=== PATIENT | male | born 1965 | race Caucasian/White ===

== ENCOUNTER 2019-12-26 17:34 | Emergency (ER) | payer BC ==
[~2019-12-26] VITALS: Ht 182.9 cm; Wt 120.2 kg
[~2019-12-26 17:34] MED LIST: ALEVE; APRISO0.375 GM PO; BENAZEPRIL HCL20 MG PO; GRALISE600 MG; HUMIRA40 MG/0.1 INJ; OMEPRAZOLE40 MG; OMEPRAZOLE40 MG PO; PENTASA250 MG PO; PROBIOTIC & AC1 EACH; TRILIPIX45 MG PO
[2019-12-26] MEDS ORDERED: SODIUM CHLORIDE 0.9% 1000ML 1,000 ML IV STA (18:08)
[2019-12-26] MEDS ORDERED: KETOROLAC TROMETHAMINE 30 MG/ML VIAL IV ONE (18:08)
[2019-12-26 18:12] LABS: BASOPHILS # (AUTO) 0.1 (0.0-0.1); BASOPHILS % 1.1 % (0.0-1.0); EOSINOPHILS # (AUTO) 0.3 (0.0-0.4); EOSINOPHILS % 3.5 % (0.0-6.0); HEMOGLOBIN 13.9 g/dL (14.0-18.0); LYMPHOCYTES # (AUTO) 2.9 (1.0-3.2); MEAN CORPUSCULAR HEMOGLOBIN 29.6 pg (28-32); MEAN CORPUSCULAR HGB CONC 31.6 g/dL (31-35); MEAN CORPUSCULAR VOLUME 93.6 fL (81-99); MONOCYTES # (AUTO) 0.8 (0.2-0.8); MONOCYTES % 10.2 % (4.4-11.3); NEUTROPHILS # (AUTO) 3.4 (2.1-6.9); NEUTROPHILS % 45.5 % (38.7-80.0); PLATELET COUNT 292 x10e3/uL (140-360); RED CELL DISTRIBUTION WIDTH 14.2 % (11.7-14.4)
[2019-12-26 18:30] LABS: ALBUMIN 3.9 g/dL (3.5-5.0); ALBUMIN/GLOBULIN RATIO 1.2 (0.8-2.0); ANION GAP 11.8 mmol/L (8-16); CALCIUM 10.9 mg/dL (8.4-10.2); CREATININE, SERUM 1.27 mg/dL (0.72-1.25); POTASSIUM 3.8 mmol/L (3.5-5.1)
[2019-12-26] MEDS ORDERED: KETOROLAC TROMETHAMINE 30 MG/ML VIAL ONE (18:33)
[2019-12-26 18:37] LABS: CREATINE KINASE MB 0.9 ng/mL (0-5.0)
--- NOTE | 2019-12-26 18:42 | Diagnostic Imaging Report ---
Examination: Single AP view of the chest. COMPARISON: None. INDICATION: Chest pain DISCUSSION: Lines/tubes: None. Lungs: The lungs are well inflated and clear. No pneumonia or pulmonary edema. Pleura: No pleural effusion or pneumothorax. Heart and mediastinum: The heart and the mediastinum are unremarkable. Bones and soft tissues: No acute bony abnormalities. IMPRESSION: 1. No acute cardiopulmonary abnormalities. Signed by: Dr. Ramos Jarquin M.D. on 12/26/2019 6:39 PM
--- NOTE | 2019-12-26 18:45 | NUR ---
REC'D REPORT FROM OFF GOING NS. AWAITING LAB RESULTS FROM HOSP.
[2019-12-26] MEDS ORDERED: IOPAMIDOL 370 MG/ML 200 ML INFUS..BTL INJ ONE (18:48)
[2019-12-26] MEDS ORDERED: SODIUM CHLORIDE 0.9% 50ML 50 ML ONE (18:48)
--- OUTSIDE RECORDS SUMMARY | 2019-12-26 19:16 | XMS REPORT | Continuity of Care Document ---
Author Author [facility] t Organization [facility] t Address [address] [place] [address] Phone Unavailable Care Team Providers Care Nursing Administrator Name Role Phone Kasey FIGUEROA, Baljeet Portillo PCP Yobani JACK Attphys Unavailable Maia Vega DO Attphys Catalina FIGUEROA, Willard Attphys Elvie Swann MD Attphys Juan Francisco FIGUEROA, Nickie Jimenez Attphys Eliezer Murphy CRNA Attphys TREVOR LOWERY Attphys Unavailable WILLARD ARNOLD Admphys Unavailable Problems Condition Name Condition Details Condition Category Status Onset Date Resolution Date Last Treatment Date Treating Clinician Comments Source Pneumonia due to COVID-19 virus Pneumonia due to COVID-19 virus Dis ease Active 2019-11-29 00:00:00 Quang Burnette Cervical spondylosis Cervical spondylosis Disease Active 00:00:00 Quang Burnette Allergies, Adverse Reactions, Alerts This patient has no known allergies or adverse reactions. Family History Family Member Diagnosis Comments Start Date Stop Date Source Natural father HIV [facility] Natural mother COPD [facility] Natural mother Cancer [facility] Natural mother Heart disease Quang Burnette Social History Social Habit Start Date Stop Date Quantity Comments Source History of tobacco use Cigarette Smoker Quang Burnette Sex Assigned At Dotty Burnette Exposure to SARS-CoV-2 (event) Yes Quang Burnette Cigarettes smoked current (pack per day) - Reported 00:00:00 2019-03-03 00:00:00 Quang Burnette Cigarette pack-years 2019-03-03 00:00:00 2019-03-03 00:00:00 Quang Burnette Alcohol intake 2019-03-03 00:00:00 2019-03-03 00:00:00 Current drinker of alcohol (finding) Quang Burnette Alcohol Comment 2019-03-02 00:00:00 2019-03-02 00:00:00 social Quang Burnette Tobacco Comment 2019-02-18 00:00:00 2019-02-18 00:00:00 quit 3 years ago Quang Burnette Smoking Status Start Date Stop Date Source Former smoker 2019-03-03 00:00:00 2019-03-03 00:00:00 Quang Burnette Medications Ordered Medication Name Filled Medication Name Start Date Stop Da te Current Medication? Ordering Clinician Indication Dosage Frequency Signature (SIG) Comments Components Source ascorbic acid, vitamin C, (VITAMIN C) 500 MG tablet 2019-12-02 00:00:00 2020-01-01 23:59:00 Yes 1000mg QD Take 2 tablets (1,000 mg total) by mouth daily for 30 days. Quang Burnette zinc sulfate (ZINCATE) 220 (50) mg capsule 12-01 00:00:00 2020-01-01 23:59:00 Yes 220mg QD Take 1 capsule (220 mg total) by mouth daily for 30 days. Quang Burnette dexamethasone (DECADRON) 1 MG tablet 2019-12-02 00:00: 00 2019-12-10 23:59:00 No 1mg QD Take 1 tablet ( 1 mg total) by mouth daily with breakfast for 8 days. Quang Burnette cefpodoxime (VANTIN) 200 MG tablet 2019-12-02 00:00:00 23:59:00 No 200mg Q.5D Take 1 tablet (2 00 mg total) by mouth 2 (two) times a day for 7 days. Quang Burnette ascorbic acid, vitamin C, (VITAMIN C) 500 MG tablet 2019-12-02 00:00:00 2019-12-01 00:00:00 No 1000mg QD Take 2 tablets (1,000 mg total) by mouth daily for 30 days. Quang Burnette zinc sulfate (ZINCATE) 220 (50) mg capsule 12-01 00:00:00 2019-12-01 00:00:00 No 220mg QD Take 1 capsule (220 mg total) by mouth daily for 30 days. Quang Burnette cefpodoxime (VANTIN) 200 MG tablet 2019-12-02 00:00:00 202 00:00:00 No 200mg Q.5D Take 1 tablet (2 00 mg total) by mouth 2 (two) times a day for 7 days. Quang Burnette adalimumab (HUMIRA) 40 mg/0.8 mL injection 2019-12-01 14:53:13 Yes .8mL 0.8 mL. Quang brito omeprazole (PriLOSEC) 40 MG capsule 2019-12-01 14:53:13 Yes 40mg Take 40 mg by mouth. Quang Burnette guaiFENesin (ROBITUSSIN) 100 mg/5 mL syrup 2019-12-01 00:00:00 Yes 200mg Q.[id number] Take 10 mL (200 mg total) by mouth 3 (three) times a day as needed for cough or congestion. Santhosh Burnette albuterol (PROAIR HFA) 90 mcg/actuation inhaler 2019-12-01 00:00:00 2019-12-31 23:59:00 Yes 2{puff} Q.25D Inhale 2 puffs every 4 (four) hours while awake for 30 days. Quang Burnette enoxaparin (LOVENOX) 40 mg/0.4 mL syringe 11-30 00:00:00 2019-12-15 23:59:00 No 40mg Q24H Inject 0.4 mL (40 mg total) under the skin daily for 14 days. Quang Burnette albuterol (PROAIR HFA) 90 mcg/actuation inhaler 2019-12-01 00:00:00 2019-12-01 00:00:00 No 2{puff} Q.25D Inhale 2 puffs every 4 (four) hours while awake for 30 days. Quang Burnette enoxaparin (LOVENOX) 40 mg/0.4 mL syringe 11-30 00:00:00 2019-12-01 00:00:00 No 40mg Q24H Inject 0.4 mL (40 mg total) under the skin daily for 14 days. Quang Burnette guaiFENesin (ROBITUSSIN) 100 mg/5 mL syrup 11-30 00:00:00 2019-12-01 00:00:00 No 200mg Q.[id number] Ta ke 10 mL (200 mg total) by mouth 3 (three) times a day as needed for cough or congestion. Quang Burnette docusate sodium (COLACE) 100 MG capsule 00:00:00 2019-04-02 23:59:00 No 100mg Q.5D Take 1 capsule (100 mg total) by mouth 2 (two) times a day for 30 days. Quang Burnette tiZANidine (ZANAFLEX) 4 MG tablet 2019-03-03 00:00:00 2018 23:59:00 No 4mg Q8H Take 1 tablet (4 mg total) by mouth every 8 (eight) hours as needed for muscle spasms for up to 7 days. Nichole Burnette cholecalciferol, vitamin D3, 50,000 unit capsule 2019-02-07 00:00:00 Yes TAKE ONE TABLET WEEKLY ORALLY Quang Burnette meloxicam (MOBIC) 15 mg tablet 2019-02-04 00:00:00 Yes 15mg QD Take 15 mg by mouth daily. Quang Burnette PENTASA 500 mg CR capsule 2019-01-29 00:00:00 Yes 1000mg Q.5D Take 1,000 mg by mouth 2 (two) times a day. Quang Burnette choline fenofibrate (TRILIPIX) 135 mg capsule 20 10-02-07 00:00:00 2019-11-29 00:00:00 No 135mg QD Take 135 mg by mouth daily. Quang Burnette clopidogrel (PLAVIX) 75 mg tablet 2017-09-16 00:00:00 Yes TAKE 1 TABLET BY MOUTH EVERY DAY Quang tobin benazepril (LOTENSIN) 10 MG tablet 2017-09-16 00:00:00 Yes TAKE 1/2 TABLET BY MOUTH EVERY DAY Quang tobin Vital Signs Vital Name Observation Time Observation Value Comments Source Systolic blood pressure 2019-12-01 11:22:31 116 mm[Hg] Quang Burnette Diastolic blood pressure 2019-12-01 11:22:31 78 mm[Hg] Quang Burnette Heart rate 2019-12-01 11:22:31 65 /min Quang Burnette Body temperature 2019-12-01 11:22:31 36.56 Charlene Nichole Burnette Respiratory rate 2019-12-01 11:22:31 25 /min Nichole Burnette Oxygen saturation in Arterial blood by Pulse oximetry 11-30 11:22:31 95 /min Quang Burnette Body height 2019-11-29 14:41:00 182.9 cm Quang Burnette Body weight 2019-11-29 14:41:00 122.471 kg Quang Burnette BMI 2019-11-29 14:41:00 36.62 kg/m2 Quang Burnette Procedures Procedure Date / Time Performed Performing Clinician Sourc e POC GLUCOSE 2019-12-01 12:12:00 Willard Arnold POC GLUCOSE 2019-12-01 05:56:00 Willard Arnold CBC WITH PLATELET AND DIFFERENTIAL 2019-12-01 05:30:00 Bee Figueroa BASIC METABOLIC PANEL 2019-12-01 05:30:00 Bee Figueroa ESTIMATED GFR 2019-12-01 05:30:00 Bee Figueroa MANUAL DIFFERENTIAL 2019-12-01 05:30:00 Bee Figuerao POC GLUCOSE 2019-11-30 19:57:00 Willard Arnold POC GLUCOSE 2019-11-30 16:40:00 Willard Arnold POC GLUCOSE 2019-11-30 15:10:00 Willard Arnold COVID-19 QUALITATIVE PCR 2019-11-30 14:30:00 Alban Richmond POC GLUCOSE 2019-11-30 11:25:00 Willard Arnold TROPONIN 2019-11-30 01:40:00 [facility] CBC WITH PLATELET AND DIFFERENTIAL 2019-11-30 01:40:00 Shiraz Cobb COMPREHENSIVE METABOLIC PANEL 2019-11-30 01:40:00 Byron Cobb ESTIMATED GFR 2019-11-30 01:40:00 Byron [facility] MANUAL DIFFERENTIAL 2019-11-30 01:40:00 Byron Cobb BLOOD CULTURE, AEROBIC & ANAEROBIC 2019-11-29 18:21:00 Gary, Kasi Burnette TROPONIN 2019-11-29 18:21:00 Achuo, Byron [facility] IGG SUBCLASSES 2019-11-29 18:21:00 Gary, Adam Burnette INTERLEUKIN 6 2019-11-29 18:21:00 Gary, Adma Burnette C-REACTIVE PROTEIN 2019-11-29 18:21:00 Gary, Adam Burnette FERRITIN LEVEL 2019-11-29 18:21:00 Gary, Adam Burnette D-DIMER 2019-11-29 18:21:00 Gary, Adam Burnette LDH 2019-11-29 18:21:00 Gary, Adam Burnette TRIGLYCERIDES 2019-11-29 18:21:00 Gary, Adam Burnette FIBRINOGEN 2019-11-29 18:21:00 Gary, Adam Burnette CREATINE KINASE, TOTAL (CPK) 2019-11-29 18:21:00 Gary, Adam Burnette ABO/RH 2019-11-29 18:21:00 Gary, Adam Burnette BLOOD CULTURE, AEROBIC & ANAEROBIC 2019-11-29 18:06:00 Gary, Kasi Burnette IA CRITICAL CARE, E/M 30-74 MINUTES 2019-11-29 15:57:46 Gary, Jaclyn Burnette CBC WITH PLATELET AND DIFFERENTIAL 2019-11-29 15:34:00 Gary, Kasi Burnette BASIC METABOLIC PANEL 2019-11-29 15:34:00 Gary, Adam Burnette TROPONIN 2019-11-29 15:34:00 Achuo, [facility] B NATRIURETIC PEPTIDE 2019-11-29 15:34:00 Gary, Adam Burnette ESTIMATED GFR 2019-11-29 15:34:00 Gary, Adam Burnette CREATINE KINASE, TOTAL (CPK) 2019-11-29 15:34:00 Gary, Adam martelld Quang Burnette MANUAL DIFFERENTIAL 2019-11-29 15:34:00 GaryAdam Kizzyjessy lundberg Vasile POC GLUCOSE 2019-11-29 15:24:00 Adam Vega XR CHEST 1 VW PORTABLE 2019-11-29 15:17:09 GaryJaclynAdamcarlos a Burnette TROPONIN 2019-03-03 17:50:00 Hima Evans HC COMPLETE BLD COUNT W/AUTO DIFF 2019-03-03 15:36:00 Hima Evans COMPREHENSIVE METABOLIC PANEL 2019-03-03 15:36:00 Jonny Evans ESTIMATED GFR 2019-03-03 15:36:00 Hima Evans odist TROPONIN 2019-03-03 15:36:00 Hima Evans ECG 12-LEAD 2019-03-03 13:57:13 Alli Swann XR CERVICAL SPINE 2 OR 3 VW 2019-03-02 19:30:05 Jonathan Swann ARTERIAL LINE 2019-03-02 15:18:42 Barbara Chicas ethodist OR FL < 1 HOUR 2019-03-02 14:10:00 Alli Swann XR CERVICAL SPINE 2 OR 3 VW 2019-03-02 14:10:00 Jonathan Swann IA AN ELECTIVE ENDOTRACHEAL AIRWAY 2019-03-02 11:29:28 Rosario Ngo SURGICAL PATHOLOGY REQUEST 2019-03-02 11:29:00 Alli Swann DISCECTOMY, CERVICAL, WITH FUSION, ANTERIOR APPROACH 2019-02 09:41:00 Alli Swann TYPE AND SCREEN 2019-02-28 10:05:00 Alli Swann XR CHEST 2 VW 2019-02-18 13:18:00 Alli Swann ECG PRE/POST OP 2019-02-18 12:30:45 Alli Swann CBC HEMOGRAM 2019-02-18 12:30:00 Alli Swann COMPREHENSIVE METABOLIC PANEL 2019-02-18 12:30:00 Mohit Swann PROTHROMBIN TIME WITH INR 2019-02-18 12:30:00 Alli Swann PARTIAL THROMBOPLASTIN TIME (PTT) 2019-02-18 12:30:00 Alli Swann ESTIMATED GFR 2019-02-18 12:30:00 Alli Swann Plan of Care Planned Activity Planned Date Details Comments Source Future Scheduled Test 2019-12-24 00:00:00 INFLUENZA VACCINE [code = INFLUENZA VACCINE] Quang Burnette Future Scheduled Test 2014-02-10 00:00:00 COLONOSCOPY SCREEN ING [code = COLONOSCOPY SCREENING] Quang Burnette Future Scheduled Test 2014-02-10 00:00:00 SHINGLES VACCINES (#1) [code = SHINGLES VACCINES (#1)] Quang Burnette Encounters Start Date/Time End Date/Time Encounter Type Admission Type [facility] Care Department Encounter ID Source 2019-11-29 00:00:00 2019-12-01 00:00:00 [id number] Quang Burnette Results Test Description Test Time Test Comments Results Result Comments Source CXR 1 VEW - HOPD 2019-12-26 18:38:00 [place] [address] Patient Name: LYNETTE CUNNINGHAM MR #: [id number] : 1965 Age/Sex: 54/M Req #: [id number] Adm Physician: Ordered by: ISIDRA JACK Report #: [id number] [facility] Room/Bed: Procedure: [id number] HOPD/CXR 1 VEW - HOPD Exam Date: 12/26/19 Exam Time: 1825 REPORT STATUS: Signed Examination: Single AP view of the chest. COMPARISON: None. INDICATION: Chest pain DISCUSSION: Lines/tubes: None. Lungs: The lungs are well inflated and clear. No pneumonia or pulmonary edema. Pleura: No pleural effusion or pneumothorax. Heart and mediastinum: The heart and the mediastinum are unremarkable. Bones and soft tissues: No acute bony abnormalities. IMPRESSION: 1. No acute cardiopulmonary abnormalities. Signed by: Dr. Kary Blackburn M.D. on 12/26/2019 6:39 PM Dictated By: KARY BLACKBURN MD 38 Transcribed By: BRIGIDO on 12/26/191838 COPY TO: ISIDRA JACK Blood culture, aerobic & anaerobic 2019-12-05 03:03:04 Test Item Blood culture isolate (test code = 600-7) No growth after 5 days of incubation. Specimen InformationSpecimen Source: BloodSpecimen Site: Hand, right [facility] [id number] 21:22:29* Test Item Value Reference Range Interpretation Comments Immunoglobulin G subclass 1 (test code = 2466-1) 510 mg/dL 240-1 118 REFERENCE INTERVAL: Immunoglobulin G Subclass 1Access complete set of age- and/or gender- specific reference intervals for this test in the [facility] Test Directory ([facility]). Immunoglobulin G subclass 2 (test code = 2467-9) 314 mg/dL 124-5 49 REFERENCE INTERVAL: Immunoglobulin G Subclass 2Access complete set of age- and/or gender- specific reference intervals for this test in the [facility] Test Directory ([facility]). Immunoglobulin G subclass 3 (test code = 2468-7) 50 mg/dL 21-13 4 REFERENCE INTERVAL: Immunoglobulin G Subclass 3Access complete set of age- and/or gender- specific reference intervals for this test in the [facility] Test Directory ([employer]). Immunoglobulin G subclass 4 (test code = 2469-5) 8 mg/dL 1-123 The total IgG (mg/dL) can be derived by the sum of the subclasses IgG1, IgG2, IgG3 and IgG4 values. However, a confirmatory and more precise total IgG is available by the nephelometric method of total IgG (Test # [id number]).REFERENCE INTERVAL: Immunoglobulin G Subclass 4Access complete set of age- and/or gender-specific reference intervals for this test in the [facility] Test Directory ([facility]).Performed By: [facility] [place] [address] [id number] Director: Noel Mason MD, MS Quang BurnettePO [id number] 12:13:01* Test Item Value Reference Range Interpretation Comments POC glucose (test code = 76793-8) 152 mg/dL 65-99 H Manager Infrastructure Name: Cassidy Clement ID: [id number] Lab Interpretation (test code = 89767-0) Abnormal Quang MethodmahadC with platelet and [id number] 07:03:23* Test Item Value Reference Range Interpretation Comments WBC (test code = 23861-1) 8.90 4.50- 11.00 k/uL RBC (test code = 61405-5) 4.26 m/uL 4.4-6 L HGB (test code = 718-7) 12.7 g/dL 14-18 L HCT (test code = 4544-3) 40.4 % 41-51 L MCV (test code = 787-2) 94.8 fL 82-100 MCH (test code = 785-6) 29.8 pg 27-34 MCHC (test code = 786-4) 31.4 g/dL 31-37 RDW - SD (test code = 22732-0) 48.7 fL 37-55 MPV (test code = 33002-0) 10.2 fL 8.8-13.2 Platelet count (test code = 11654-2) 414 150- 400 k/uL H Nucleated RBC (test code = 81471-9) 0.00 /100 WBC Neutrophils (test code = 85715-3) 59.0 % 39-69 Lymphocytes (test code = 97825-7) 23.0 % 25-45 L Monocytes (test code = 74061-2) 12.0 % 0-10 H Eosinophils (test code = 84399-5) 2.0 % 0-5 Basophils (test code = 62934-4) 1.0 % 0-1 Lab Interpretation (test code = 85942-5) Abnormal [facility] [id number] 07:03:23* Test Item Value Reference Range Interpretation Comments Manual differential (test code = 40385-6) PERFORMED Neutrophils (test code = 61871-7) 59.0 % 39-69 Lymphocytes (test code = 07512-1) 23.0 % 25-45 L Monocytes (test code = 07360-6) 12.0 % 0-10 H Eosinophils (test code = 26329-7) 2.0 % 0-5 Basophils (test code = 04679-4) 1.0 % 0-1 Metamyelocytes (test code = 740-1) 1 % Promyelocytes (test code = 783-1) 0 % Reactive lymphocytes (test code = 733-6) 2.0 Platelet slide review (test code = 98567-2) Dayana adequate Lab Interpretation (test code = 16413-3) Abnormal [facility] metabolic [id number] 06:51:46* Test Item Value Reference Range Interpretation Comments Sodium (test code = 2951-2) 139 135- 148 mEq/L Potassium (test code = 2823-3) 4.3 3.5- 5.0 mEq/L Chloride (test code = 2075-0) 105 98- 112 mEq/L CO2 (test code = 8-9) 22 24- 31 mEq/L L Anion gap (test code = 24029-4) 12@ANIO 7- 15 mEq/L BUN (test code = 3094-0) 16 mg/dL 6-20 Creatinine (test code = 2160-0) 0.80 mg/dL 0.7-1.2 Glucose (test code = 2345-7) 125 mg/dL 65-99 H Calcium (test code = 57594-1) 9.8 mg/dL 8.3-10.2 Lab Interpretation (test code = 73921-0) Abnormal [facility]ated [id number] 06:51:46* Test Item Value Reference Range Interpretation Comments Estimated GFR (test code = 5488) >=90 mL/min/1.73 m2 Catergory Units InterpretationG1 >=90 Normal or highG2 60-89 Mildly mkcpnfwlxH9c 45-59 Mildly to moderately bhjtdwodiL5d 30-44 Moderately to severely decreasedG4 15-29 Severely decreasedG5 <15 Kidney failureThe eGFR was calculated using the Chronic Kidney Disease Epidemiology Collaboration (CKD-EPI) equation. Interpretation is based on recommendations of the National Kidney Foundation-Kidney Disease Outcomes Quality Initiative (NKF-KDOQI) published in 2014. Quang BurnetteCOVID-19 qualitative [id number] 04:37:22* Test Item Value Reference Range Interpretation Comments Interpretation (test code = 9210926) Negative results do not preclude 2019-nCoV infection and should not be used as the sole basis for treatment or other patient management decisions. Negative results must be combined with clinical observations, patient history, and epidemiological information. COVID-19 qualitative PCR result (test code = 03490-5) Not-Detect ed Not-Detected COVID-19 qualitative PCR (test code = 7070) See link below for P DF Lab Report [facility] XyuvlbyqaLxsuzzqpcxbxb3319-57-51 16:41:49* Test Item Value Reference Range Interpretation Comments Triglycerides (test code = 2571-8) 415 mg/dL <150 H Lab Interpretation (test code = 80211-5) [facility]normal [facility] yglnuwq9981-86-34 10:56:18* Test Item Value Reference Range Interpretation Comments CRP (test code = 1988-5) 4.04 mg/dL 0-0.5 H Lab Interpretation (test code = 25999-8) Abnormal [facility]Ferritin rwzsi6408-10-37 10:07:07* Test Item Value Reference Range Interpretation Comments Ferritin level (test code = 2276-4) 2170 ng/mL 30-400 H Lab Interpretation (test code = 77087-9) Abnormal [facility] MethodistInterleukin 06:29:22* Test Item Value Reference Range Interpretation Comments Interleukin 6 (test code = 52846-2) 9 pg/mL 0-5 H This test was developed and its performance characteristics determined by the Department of Pathology and Genomic Medicine, [facility]. Interleukin 6 is tested by [employer] by one-step immunoenzymatic assay. It has not been cleared or approved by FDA. The laboratory is regulated under CLIA as qualified to perform high-complexity testing. This test is used for clinical purposes. It should not be regarded as investigational or for research. Lab Interpretation (test code = 84135-3) Abnormal Quang BurnetteNsnmxycqgPwohtvzs4563-65-86 02:24:26* Test Item Value Reference Range Interpretation Comments Troponin (test code = 30142-3) <0.006 0-0.04 In patients suspected of having a myocardial infarction, along with all other appropriate clinical measures and actions including ECG and other diagnostics as appropriate, measure Ultra TnI at 0 hrs and at 3 hrs.Myocardial infarction VERY LIKELYThe 0 hr TnI level is > 0.10 ng/mL Toy cardial infarction LIKELYThe 0 hr TnI level is > 0.04 ng/mL and 3 hr level is increased or decreased by at least 0.020 ng/mL Myocardi al infarction VERY UNLIKELYBoth the 0 hr and 3 hr TnI levels <= 0.04 ng/mL(within normal limits) OR 0 hr is > 0.04 ng/mL and 3 hr is increased OR decreased by less than 0.020 ng/mL [facility] [id number] 02:16:28* Test Item Value Reference Range Interpretation Comments Sodium (test code = 2951-2) 135 135- 148 mEq/L Potassium (test code = 2823-3) 4.6 3.5- 5.0 mEq/L Chloride (test code = 2075-0) 102 98- 112 mEq/L CO2 (test code = 8-9) 22 24- 31 mEq/L L Anion gap (test code = 81257-5) 11@ANIO 7- 15 mEq/L BUN (test code = 3094-0) 16 mg/dL 6-20 Creatinine (test code = 2160-0) 0.80 mg/dL 0.7-1.2 Glucose (test code = 2345-7) 184 mg/dL 65-99 H Calcium (test code = 49756-7) 9.6 mg/dL 8.3-10.2 Protein (test code = 2885-2) 7.0 g/dL 6.3-8.3 -[place] 4.6- 7.0 g/dL1 week 4.4-7.6 g/dL7 months-1year 5.1-7.3 g/dL1-2 years 5.6-7.5 g/dL>3 years 6.0-8.0 g/tW58-028 6.3-8.3 g/dL Albumin (test code = 1751-7) 3.2 g/dL 3.5-5 L A/G ratio (test code = 1759-0) 0.8 0.7-3.8 Alkaline phosphatase (test code = 6768-6) 44 U/L 40-129 AST (test code = 1920-8) 27 U/L 10-50 ALT (test code = 1742-6) 60 U/L 5-50 H Total bilirubin (test code = 1975-2) 0.3 mg/dL 0-1.2 Lab Interpretation (test code = 15602-8) Abnormal [facility] MethodistABO and [id number] 18:50:00* Test Item Value Reference Range Interpretation Comments ABO grouping (test code = 883-9) A Rh type (test code = 81164-5) POS [facility] MethodistCreatine kinase, total (CPK)2019-11-29 18:47:37* Test Item Value Reference Range Interpretation Comments Creatine kinase (test code = 2157-6) 32 U/L 39-308 L Lab Interpretation (test code = 65142-9) Abnormal [facility] YmkbwairzZAR0005-08-54 18:47:37* Test Item Value Reference Range Interpretation Comments LDH (test code = 04118-7) 245 U/L 87-225 H Lab Interpretation (test code = 73221-5) Abnormal [facility] FhrbwrnjrL-rcwuh6089-27-07 18:44:53* Test Item Value Reference Range Interpretation Comments D-dimer (test code = 12128-7) 0.49 0.00- 0.40 ug/mL FEU H Units are ug/ml Fibrinogen Equivalent Unit.When combined with low clinical probability, D-dimer results of less than 0.5 ug/ml FEU have a good negative predictive value in excluding PE or DVT. For D-dimer results greater than 0.5 ug/ml FEU further testing is indicated if PE or DVT is suspected clinically.Elevated D-dimer results have been reported in DVT, PE, and DIC cases and may indicate the pre sence of a clot. D-dimer results may be elevated due to old age, , inflammatory diseases, trauma, post-operative states, sepsis, and malignancies. Lab Interpretation (test code = 76995-8) Abnormal [facility] YmqptvuwpNlykgeadcf5962-87-24 18:44:53* Test Item Value Reference Range Interpretation Comments Fibrinogen (test code = 99748-5) 766 mg/dL 200-450 H Lab Interpretation (test code = 77558-8) Abnormal [facility] nat[facility] [id number] 16:11:47* Test Item Value Reference Range Interpretation Comments BNP (test code = 57842-3) 13 pg/mL 0-100 [facility] GaryistCRITICAL [id number] 15:57:46Adam Vega DO 12/02/2019 3:53 AMCritical CarePerformed by: Adam Vega DOAuthorized by: Adam Vega DO Critical care provider statement: Critical care time (minutes): 60 Critical care end time: 12/02/2019 3:52 AM Critical care time was exclusive of: Separately billable procedures and treating other patients Critical care was necessary to treat or prevent imminent or life- threatening deterioration of the following conditions: Respiratory failure Critical care was time spent personally by me on the following activities: Ordering and performing treatments and interventions, ordering and review of laboratory studies, ordering and review of radiographic studies, pulse oximetry, re-evaluation of patient's condition, development of treatment plan with patient or surrogate, evaluation of patient's response to treatment, examination of patient, review of old charts and obtaining history from patient or surrogate Torrey 'yes' if you are taking over critical care for this patient from another provider.: no Quang BurnetteXR Chest 1 Vw [id number] 15:20:53Hm Interface, Radiology Results Incoming - 11/29/2019 3:24 PM CDTEXAMINATION: XR CHEST 1 VW PORTABLECLINICAL HISTORY: SOBCOMPARISON: 02/18/2019FINDINGS:One view of the chest demonstrates normal cardiomediastinal silhouette. Pulmonary vas culature is within normal limits.Patchy bilateral parahilar groundglass opacity and reticulations are seen, suggestive of bilateral multifocal pneumonia. No ple ural effusion is seen.. There is no evidence of pneumothorax. Low lung volume is noted.Regional osseous structures is unremarkable.IMPRESSION:Finding suggestive of bilateral multifocal pneumonia including Covid 19 infection. Recommend clini lilibeth correlation and appropriate laboratory tests for further evaluation..[facility] [place] [id number] MethodistSurgical pathology [id number] 10:16:03* Test Item Value Reference Range Interpretation Comments Case number (test code = 1131264) [id number] Surgical pathology report (test code = 2255) See link below for PDF Lab Report Result status (test code = [id number]) This is Final Report for [id number] 0759-3 Quang BurnetteECG 12 [id number] 14:15:56* Test Item Value Reference Range Interpretation Comments Ventricular rate (test code = 253) 70 Atrial rate (test code = 255) 70 IA interval (test code = 266) 190 QRSD interval (test code = 260) 156 QT interval (test code = 264) 440 QTC interval (test code = 265) 475 P axis 1 (test code = 267) 37 QRS axis 1 (test code = 268) -49 T wave axis (test code = 270) 30 EKG impression (test code = 273) Normal sinus rhythm-R ight bundle branch block- Left anterior fascicular block-^^^ Bifascicular block ^^^-Abnormal ECG-In automated comparison with ECG of 18-FEB-2019 12:30,-No significant change was f ound- Quang Kaplan Cervical Spine 2 Or 3 [id number] 20:32:02Hm Interface, Radiology Results Incoming - 03/02/2019 8:35 PM CDTEXAMINATION: XR CERVICAL SPINE 2 OR 3 VW (AP, lateral and swimmer's views)CLINICAL INFORMATION: C-spine fusion follow upCOMPARISON: None available at the time of studyIMPRESSION:*Exam shows straightening of the cervical lordosis.*No evidence of displaced vertebral fractures, dislocations or retropulsed bone fragments.*Status post C3 C7 ACDF procedure and interbody fusion shows no evidence of hardware complications*No other significant findings.[facility] [place] < 1 [id number] 18:12:25Hm Interface, Radiology Results Incoming - 03/02/2019 6:15 PM CDTEXAMINATION: OR FL 1 HOURC-arm fluoroscopy was requested in OR. FLUORO TIME 0:10IMPRESSION :Separate operative report will be issued by the physician performing the proced ure.[id number] MethodistArterial [id number] 15:18:42MitBarbara mcguire MD 03/02/2019 3:19 PMArterial linePerformed by: Barbara Chicas MDAuthorized by: Barbara Chicas MD Start Time: 03/02/2019 9:56 AMEnd Time: 03/02/2019 10:00 AMStaff: Anesthesiologist: Barbara Chicas MD Performed by: AnesthesiologistPre-procedure: patient identified, IV checked, site and side verified, risks and benefits discussed, procedure verified, surgical consent complete, patient position confirmed, monitors and equipment checked and pre-op evaluation complete MSBT: antiseptic used, hand hygiene performed, cap/gown used by other personnel and solutions labeled Indications: Indicati ons: hemodynamic monitoring Anesthesia: Anesthesia: GeneralProcedure Details : Arterial Line placement: Placed post induction Line placement site: Radia lLine placement side: Left Arterial line gauge: 20 GNumber of attempts: 1Ult rasound guidance used: No Post-procedure: Post-procedure: Sterile dressing a pplied Post procedure circulation, sensation, movement: Normal and unchanged Patient tolerance: Patient tolerated the procedure well with no immediate compl miketionsQuang VegaCxcnuoutnAhoxag8490-88-29 11:29:28Barbara Chicas MD 03/02/2019 3:18 PMAirwayDate/Time: 03/02/2019 9:54 AMPerformed by: Florentin NgoAuthorized by: Barbara Chicas MD Location: ORUrgency: ElectiveDifficult Airway: No Anesthesiologist: Barbara Chicas MDResident/ROLL GRINDER OPERATOR/AA: Florentin NgoPerformed by: resident/CRN A/AAPreoxygenated with 100% O2: Yes C-spine Precautions Maintained Throughout: Yes Mask Ventilation: Assisted maskFinal Airway Type: Endotracheal airwayFina l Endotracheal Airway: ETTCuffed: Yes Technique Used: Direct laryngoscopyDevi jam/Methods Used in Placement: Intubating styletInsertion Site: OralBlade Type : MacintoshLaryngoscope Blade/Videolaryngoscope Blade Size: 3ETT Size (mm): 8 .0Cuff at minimum occlusion pressure: Yes Measured from: LipsETT to Lips (cm): 24Placement Verified by: CO2 detection and direct visualization Laryngoscopic view: Grade I - full view of glottisRapid Sequence Induction (RSI): No Modifi ed RSI: No Number of Attempts at Approach: [facility] Methodist[facility] Pre/Post Op 2019-02-21 07:05:20* Test Item Value Reference Range Interpretation Comments Ventricular rate (test code = 253) 57 Atrial rate (test code = 255) 57 IA interval (test code = 266) 200 QRSD interval (test code = 260) 154 QT interval (test code = 264) 450 QTC interval (test code = 265) 438 P axis 1 (test code = 267) 48 QRS axis 1 (test code = 268) -52 T wave axis (test code = 270) 20 EKG impression (test code = 273) Sinus bradycardia-Rig ht bundle branch block- Left anterior fascicular block-^^^ Bifascicular block ^^^-Abnormal ECG-No previous ECGs available- Quang BurnetteProthrombin time with [id number] 14:17:11* Test Item Value Reference Range Interpretation Comments Prothrombin time (test code = 5902-2) 12.8 11.5- 14.5 sec INR (test code = 56416-2) 1.0 Th e International Normalized Ratio (INR) is a therapeutic monitoring tool for patients who are stable on oral anticoagulant therapy. An INR of 2.0-3.0 is suggested for deep vein thrombosis/pulmonary embolism. [facility]Partial thromboplastin time, [id number] 14:17:11* Test Item Value Reference Range Interpretation Comments PTT (test code = 27771-0) 29.5 23.0- 36.0 sec PTT therapeutic range for unfractionated heparin is61.0-112.0 seconds which corresponds to Anti-Xa0.3-0.7 U/ml. [facility] [id number] 14:03:34* Test Item Value Reference Range Interpretation Comments WBC (test code = 61942-0) 7.74 4.50- 11.00 k/uL RBC (test code = 97964-8) 4.48 m/uL 4.4-6 HGB (test code = 718-7) 13.7 g/dL 14-18 L HCT (test code = 4544-3) 43.6 % 41-51 MCV (test code = 787-2) 97.3 fL 82-100 MCH (test code = 785-6) 30.6 pg 27-34 MCHC (test code = 786-4) 31.4 g/dL 31-37 RDW - SD (test code = 11820-2) 48.4 fL 37-55 MPV (test code = 98597-4) 11.8 fL 8.8-13.2 Platelet count (test code = 46600-4) 282 150- 400 k/uL Nucleated RBC (test code = 19603-1) 0.00 /100 WBC Lab Interpretation (test code = 66773-1) Abnormal [facility] Chest 2 [id number] 13:30:39Hm Interface, Radiology Results - 02/18/2019 1:33 PM CDTEXAMINATION: XR CHEST 2 VWCLINICAL HISTORY: Z01.818 Encounter for other preprocedural examination, pre op testingCOMPARISON: NoneIMPRESSION:Lungs are clear without infiltrate, pleural effusion or pneumothorax.Cardiomediastinal silhouette is mildly enlarged.Osseous degenerative changes.[id number] MethodistFOOT COMPLETE BILATERAL [facility] [address] [address] Patient Name: LYNETTE CUNNINGHAM MR #: [id number] DO B: 1965 Age/Sex: 51/M Req #: [id number] Adm Physici an: Ordered by: TREVOR LOWERY MD Report #: [id number] Location: [facility] d: Procedure: [id number] DX/FOOT COMPLETE BILATERAL E xam Date: 01/13/17 Exam Time: 1628 REPORT STATU S: Signed PROCEDURE: FOOT COMPLETE BILATERAL INDICATION: Bone spurs. He ll pain. COMPARISON: None. FINDINGS: No acute osseous abnormality. S mall plantar calcaneal enthesophyte. Soft tissue swelling in the medial foot . CONCLUSION: Small plantar calcaneal enthesophyte. Jesus Mandel M.D. Dictated by: Jesus Mandel M.D. on 01/13 at 17:52 Electronically approved by: Jesus Mandel M.D. on 01/13/2017 at 17:52 Dictated By: BRIANNE MANDEL MD, MD Electro nically Signed By: BRIANNE MANDEL MD, MD on 01/13/171751 Transcribed By: RIZWAN on 01/13/171751 COPY TO: TREVOR LOWERY MD
--- OUTSIDE RECORDS SUMMARY | 2019-12-26 19:16 | XMS REPORT | Clinical Summary ---
Author Author [facility] Organization [facility] Address Unknown Phone Unavailable Care Team Providers Care Surgical Services Manager Name Role Phone Bandar Parks MD PCP Allergies No Known Allergies Medications End Date Status Medication Sig Dispensed Refills Start Date Active PENTASA 500 mg CR capsule Take 1,000 mg 1 by mouth 2 9 (two) times a day. Active adalimumab (HUMIRA) 40 0.8 mL. 0 mg/0.8 mL injection Active meloxicam (MOBIC) 15 mg Take 15 mg by 3 tablet mouth daily. 9 Active clopidogrel (PLAVIX) 75 TAKE 1 TABLET 0 09/16/ 201 mg tablet BY MOUTH 8 EVERY DAY Active omeprazole (PriLOSEC) 40 Take 40 mg by 0 MG capsule mouth. Active cholecalciferol, vitamin TAKE ONE 0 02/07 D3, 50,000 unit capsule TABLET WEEKLY 9 ORALLY Active benazepril (LOTENSIN) 10 TAKE 1/2 0 09/16 /201 MG tablet TABLET BY 8 MOUTH EVERY DAY 12/31/2019 Active albuterol (PROAIR HFA) 90 Inhale 2 1 Inhaler 0 mcg/actuation inhaler puffs every 4 0 (four) hours while awake for 30 days. 01/01/2020 Active ascorbic acid, vitamin C, Take 2 60 tablet 0 (VITAMIN C) 500 MG tablet tablets 0 (1,000 mg total) by mouth daily for 30 days. Active guaiFENesin (ROBITUSSIN) Take 10 mL 236 mL 0 0 100 mg/5 mL syrup (200 mg 0 total) by mouth 3 (three) times a day as needed for cough or congestion. 01/01/2020 Active zinc sulfate (ZINCATE) Take 1 30 capsule 0 220 (50) mg capsule capsule (220 0 mg total) by mouth daily for 30 days. 11/29/2019 Discontinued (Patient Report ed) choline fenofibrate Take 135 mg 0 (TRILIPIX) 135 mg capsule by mouth 9 daily. 04/02/2019 docusate sodium (COLACE) Take 1 60 capsule 0 1 100 MG capsule capsule (100 9 mg total) by mouth 2 (two) times a day for 30 days. 03/10/2019 tiZANidine (ZANAFLEX) 4 Take 1 tablet 21 tablet 0 MG tablet (4 mg total) 9 by mouth every 8 (eight) hours as needed for muscle spasms for up to 7 days. 12/01/2019 Discontinued albuterol (PROAIR HFA) 90 Inhale 2 1 Inhaler 0 mcg/actuation inhaler puffs every 4 0 (four) hours while awake for 30 days. 12/01/2019 Discontinued ascorbic acid, vitamin C, Take 2 60 tablet 0 (VITAMIN C) 500 MG tablet tablets 0 (1,000 mg total) by mouth daily for 30 days. 12/01/2019 Discontinued enoxaparin (LOVENOX) 40 Inject 0.4 mL 14 Syringe 0 mg/0.4 mL syringe (40 mg total) 0 under the skin daily for 14 days. 12/01/2019 Discontinued guaiFENesin (ROBITUSSIN) Take 10 mL 236 mL 0 0 100 mg/5 mL syrup (200 mg 0 total) by mouth 3 (three) times a day as needed for cough or congestion. 12/01/2019 Discontinued zinc sulfate (ZINCATE) Take 1 30 capsule 0 220 (50) mg capsule capsule (220 0 mg total) by mouth daily for 30 days. 12/10/2019 dexamethasone (DECADRON) Take 1 tablet 8 tablet 0 1 MG tablet (1 mg total) 0 by mouth daily with breakfast for 8 days. 12/01/2019 Discontinued cefpodoxime (VANTIN) 200 Take 1 tablet 14 tablet 0 MG tablet (200 mg 0 total) by mouth 2 (two) times a day for 7 days. 12/09/2019 cefpodoxime (VANTIN) 200 Take 1 tablet 14 tablet 0 MG tablet (200 mg 0 total) by mouth 2 (two) times a day for 7 days. 12/15/2019 enoxaparin (LOVENOX) 40 Inject 0.4 mL 14 Syringe 0 mg/0.4 mL syringe (40 mg total) 0 under the skin daily for 14 days. Active Problems Problem Noted Date Pneumonia due to COVID-19 virus 11/29/2019 Cervical spondylosis 03/02/2019 Encounters Care Team Description Date Type Specialty Adam Vega DO Kohlnhofer, Matthew, MD Pneumonia due to COVID-19 virus (Primary Dx); Hypoxia 11/29/2019 Hospital General Internal Me dicine - Encounter 12/01/2019 11/29/2019 Travel Barbara Chicas MD Ali, Faisal, CRNA 03/02/2019 Anesthesia General Surgery Event Alli Swann MD C3-7 ACDF 03/02/2019 Surgery General Surgery Alli Swann MD 03/02/2019 Hospital General Surgery - Encounter 03/03/2019 Alli Swann MD 02/18/2019 Hospital Radiology Encounter Alli Swann MD Pre-op testing (Primary Dx) 02/18/2019 Pre-Admit Pre-Admission Testi ng Testing Appointment after 12/25/2018 Family History Medical History Relation Name Comments HIV Father COPD Mother Cancer Mother Heart disease Mother Relation Name Status Comments Father Mother Social History Date Tobacco Use Types Packs/Day Years Used Former Smoker Cigarettes 2 30 Smokeless Tobacco: Never Used Comments: quit 3 years ago Drinks/Week oz/Week Comments Alcohol Use social Yes Sex Assigned at Date Recorded Not on file Industry Job Start Date Occupation Not on file Not on file Not on file Travel End Travel History Travel Start No recent travel history available. Date Recorded COVID-19 Exposure Response 11/29/2019 4:14 PM CDT In the last month, have you been in contact with Yes someone who was confirmed or suspected to have Coronavirus / COVID-19? Last Filed Vital Signs Reading Time Taken Comments Vital Sign 116/78 12/01/2019 11:22 AM CDT Blood Pressure 65 12/01/2019 11:22 AM CDT Pulse 36.6 C (97.8 F) 12/01/2019 11:22 AM CDT Temperature 25 12/01/2019 11:22 AM CDT Respiratory Rate 95% 12/01/2019 11:22 AM CDT Oxygen Saturation - - Inhaled Oxygen Concentration 122 kg (270 lb) 11/29/2019 2:41 PM CDT Weight 182.9 cm (6') 11/29/2019 2:41 PM CDT Height 36.62 11/29/2019 2:41 PM CDT Body Mass Index Plan of Treatment Health Maintenance Due Date Last Done Comments COLONOSCOPY SCREENING 02/10/2014 SHINGLES VACCINES (#1) 02/10/2014 INFLUENZA VACCINE 12/24/2019 Implants Device Identifier Shelf Expiration Date Model / Serial / [place] [id number] / / NONE Novel Cervical Spacer, 6mm Medium, IPM Anterior: S pine ALPHATEC 7 Degree Lordotic (Cervical IMPLANT Cervical SP INE Interbody - Implant) - [id number] DEVICES Implanted: Qty: 3 on 03/02/2019 by Alli Swann MD at [facility] [id number] / / NONE Novel Cervical Spacer, 7mm Medium, IPM Anterior: S pine ALPHATEC 7 Degree Lordotic (Cervical IMPLANT Cervical SP INE Interbody - Implant) - [id number] DEVICES Implanted: Qty: 1 on 03/02/2019 by Alli Swann MD at [facility] [id number] / / NONE Trestle Lux Anterior Cervical IPM Anterior: Spine ALPHATEC Plate, 4-Level, 64mm - [id number] IMPLANT Cervical SPINE Implanted: Qty: 1 on 03/02/2019 by DEVICES Alli Swann MD at [facility] [id number] / / 4.0mm Trestle Luxe Variable Angle, IPM Anterior: S pine ALPHATEC Self Tapping, Hexalobe Screw, Ti, IMPLANT Cervical SPINE 14mm - [id number] DEVICES Implanted: Qty: 10 on 03/02/2019 by Alli Swann MD at [facility] 12/23/2023 [id number] / / [id number] [employer] Tender Mltpl Clip Ligaclip Ligtng Surgical Anterior: S adam ETHICON 20 Clips 29.2cm Med Ti - [id number] Implants; Cervical ENDO Implanted: Qty: 1 on 03/02/2019 by Expanders; HAILEE AJAlli Smith MD at [facility] Extenders; HOSPITAL Surgical Wires [id number] / / NONE Bit Drl 2.3x14mm - [id number] Surgical Anterior: Spi ne ALPHATEC Implanted: Qty: 1 on 03/02/2019 by Implants; Cervical SPINE INC Alli Swann MD at [facility] Expanders; HOSPITAL Extenders; Surgical Wires Procedures Comments Procedure Name Priority Date/Time Associated Diag nosis POC GLUCOSE Routine 12/01/2019 12:12 PM CDT POC GLUCOSE Routine 12/01/2019 5:56 AM CDT MANUAL DIFFERENTIAL Routine 12/01/2019 5:30 AM CDT ESTIMATED GFR Routine 12/01/2019 5:30 AM CDT BASIC METABOLIC PANEL Routine 12/01/2019 5:30 AM CDT CBC WITH PLATELET AND Routine 12/01/2019 DIFFERENTIAL 5:30 AM CDT POC GLUCOSE Routine 11/30/2019 7:57 PM CDT POC GLUCOSE Routine 11/30/2019 4:40 PM CDT POC GLUCOSE Routine 11/30/2019 3:10 PM CDT COVID-19 QUALITATIVE PCR Routine 11/30/2019 2:30 PM CDT POC GLUCOSE Routine 11/30/2019 11:25 AM CDT MANUAL DIFFERENTIAL Routine 11/30/2019 1:40 AM CDT ESTIMATED GFR Routine 11/30/2019 1:40 AM CDT COMPREHENSIVE METABOLIC Routine 11/30/2019 PANEL 1:40 AM CDT CBC WITH PLATELET AND Routine 11/30/2019 DIFFERENTIAL 1:40 AM CDT TROPONIN Timed 11/30/2019 1:40 AM CDT ABO/RH STAT 11/29/2019 6:21 PM CDT CREATINE KINASE, TOTAL STAT 11/29/2019 (CPK) 6:21 PM CDT FIBRINOGEN STAT 11/29/2019 6:21 PM CDT TRIGLYCERIDES STAT 11/29/2019 6:21 PM CDT LDH STAT 11/29/2019 6:21 PM CDT D-DIMER STAT 11/29/2019 6:21 PM CDT FERRITIN LEVEL STAT 11/29/2019 6:21 PM CDT C-REACTIVE PROTEIN STAT 11/29/2019 6:21 PM CDT INTERLEUKIN 6 STAT 11/29/2019 6:21 PM CDT IGG SUBCLASSES STAT 11/29/2019 6:21 PM CDT TROPONIN Timed 11/29/2019 6:21 PM CDT BLOOD CULTURE, AEROBIC & Routine 11/29/2019 ANAEROBIC 6:21 PM CDT BLOOD CULTURE, AEROBIC & Routine 11/29/2019 ANAEROBIC 6:06 PM CDT MI CRITICAL CARE, E/M Routine 11/29/2019 30-74 MINUTES 3:57 PM CDT MANUAL DIFFERENTIAL STAT 11/29/2019 3:34 PM CDT CREATINE KINASE, TOTAL STAT 11/29/2019 (CPK) 3:34 PM CDT ESTIMATED GFR STAT 11/29/2019 3:34 PM CDT B NATRIURETIC PEPTIDE STAT 11/29/2019 3:34 PM CDT TROPONIN STAT 11/29/2019 3:34 PM CDT BASIC METABOLIC PANEL STAT 11/29/2019 3:34 PM CDT CBC WITH PLATELET AND STAT 11/29/2019 DIFFERENTIAL 3:34 PM CDT POC GLUCOSE Routine 11/29/2019 3:24 PM CDT XR CHEST 1 VW PORTABLE STAT 11/29/2019 3:17 PM CDT TROPONIN Timed 03/03/2019 5:50 PM CDT TROPONIN STAT 03/03/2019 3:36 PM CDT ESTIMATED GFR STAT 03/03/2019 3:36 PM CDT COMPREHENSIVE METABOLIC STAT 03/03/2019 PANEL 3:36 PM CDT HC COMPLETE BLD COUNT STAT 03/03/2019 W/AUTO DIFF 3:36 PM CDT ECG 12-LEAD Routine 03/03/2019 1:57 PM CDT XR CERVICAL SPINE 2 OR 3 Routine 03/02/2019 VW 7:30 PM CDT ARTERIAL LINE Routine 03/02/2019 3:18 PM CDT XR CERVICAL SPINE 2 OR 3 Routine 03/02/2019 VW 2:10 PM CDT OR FL < 1 HOUR Routine 03/02/2019 2:10 PM CDT MI AN ELECTIVE Routine 03/02/2019 ENDOTRACHEAL AIRWAY 11:29 AM CDT SURGICAL PATHOLOGY Routine 03/02/2019 REQUEST 11:29 AM CDT DISCECTOMY, CERVICAL, 03/02/2019 CERVICAL PORT L AMINECTOMY WITH FUSION, ANTERIOR 9:41 AM CDT SYNDROME APPROACH M96.1 Special Needs NEEDS [facility] LOMAX, PREFERRED IOM, C-ARM, MICROSCOPE [facility] AWARE OF CASE SCHEDULED FOR 03/02/19 AT 930AM DCM TYPE AND SCREEN Routine 02/28/2019 Preop testing 10:05 AM CDT XR CHEST 2 VW Routine 02/18/2019 Pre-op testing 1:18 PM CDT ECG PRE/POST OP Routine 02/18/2019 Pre-op testing 12:30 PM CDT ESTIMATED GFR Routine 02/18/2019 12:30 PM CDT PARTIAL THROMBOPLASTIN Routine 02/18/2019 Pre-op testing TIME (PTT) 12:30 PM CDT PROTHROMBIN TIME WITH INR Routine 02/18/2019 Pre- op testing 12:30 PM CDT COMPREHENSIVE METABOLIC Routine 02/18/2019 Pre-op testing PANEL 12:30 PM CDT CBC HEMOGRAM Routine 02/18/2019 Pre-op testing 12:30 PM CDT after 12/25/2018 Results * POC glucose (12/01/2019 12:12 PM CDT) Only the most recent of 7 results within the time period is included. Pathologist [facility] POC glucose 152 (H) 65 - 99 mg/dL [facility] Comment: YE CORBIN Dye Fe[place] [facility] [place]: [id number] Specimen Blood Performing Organization Address [facility] Ph one Number [facility] DEPARTMENT [address] [place] [phone] 58 PATHOLOGY AND GENOMIC MEDICINE [place] YE CORBIN [address] [place] [address] * Estimated GFR (12/01/2019 5:30 AM CDT) Only the most recent of 5 results within the time period is included. [facility] Estimated GFR >=90 mL/min/1.73 m2 [facility] Comment: YE CORBIN [facility] Interpretation G1 >=90 Normal or high G2 60-89 Mildly decreased G3a 45-59 Mildly to moderately decreased G3b 30-44 Moderately to severely decreased G4 15-29 Severely decreased G5 <15 Kidney failure The eGFR was calculated using the Chronic Kidney Disease Epidemiology Collaboration (CKD-EPI) equation. Interpretation is based on recommendations of the National Kidney Foundation-Kidney Disease Outcomes Quality Initiative (NKF-KDOQI) published in 2014. Specimen Performing Organization Address City/[facility] Ph one Number [facility] [place] [address] [place] [address] [place] [address] PATHOLOGY AND GENOMIC MEDICINE [facility] [address] [place] [address] [facility] * Manual differential (12/01/2019 5:30 AM CDT) Only the most recent of 3 results within the time period is included. Manual PERFORMED [facility] differential [facility] Neutrophils 59.0 39.0 - 69.0 % [facility] Lymphocytes 23.0 (L) 25.0 - 45.0 % [facility] Monocytes 12.0 (H) 0.0 - 10.0 % [facility] Eosinophils 2.0 0.0 - 5.0 % [facility] Basophils 1.0 0.0 - 1.0 % [facility] Metamyelocytes 1 % [facility] Promyelocytes 0 % [facility] Reactive 2.0 [facility] lymphocytes [facility] Platelet slide Dayana adequate [facility] review [facility] Specimen Performing Organization Address City/State/Zipcode Ph one Number [facility] [place] [place] [address] [address] [place], [place] [address] PATHOLOGY AND GENOMIC MEDICINE [facility] [address] [place] [address] [facility] * CBC with platelet and differential (12/01/2019 5:30 AM CDT) Only the most recent of 4 results within the time period is included. WBC 8.90 4.50 - 11.00 k/uL [facility] RBC 4.26 (L) 4.40 - 6.00 m/uL [facility] HGB 12.7 (L) 14.0 - 18.0 g/dL [facility] HCT 40.4 (L) 41.0 - 51.0 % [facility] MCV 94.8 82.0 - 100.0 fL [facility] MCH 29.8 27.0 - 34.0 pg [facility] MCHC 31.4 31.0 - 37.0 g/dL [facility] RDW - SD 48.7 37.0 - 55.0 fL [facility] MPV 10.2 8.8 - 13.2 fL [facility] Platelet count 414 (H) 150 - 400 k/uL [facility] Nucleated RBC 0.00 /100 WBC [facility] Neutrophils 59.0 39.0 - 69.0 % [facility] Lymphocytes 23.0 (L) 25.0 - 45.0 % [facility] Monocytes 12.0 (H) 0.0 - 10.0 % [facility] Eosinophils 2.0 0.0 - 5.0 % [facility] Basophils 1.0 0.0 - 1.0 % [facility] Specimen Blood Performing Organization Address [facility] Ph one Number [facility] DEPARTMENT OF [address] [place] [address] [place] [address] PATHOLOGY AND GENOMIC MEDICINE [address] * Basic metabolic panel (12/01/2019 5:30 AM CDT) Only the most recent of 2 results within the time period is included. Pathologist [facility] Sodium 139 135 - 148 mEq/L [facility] Potassium 4.3 3.5 - 5.0 mEq/L [facility] Chloride 105 98 - 112 mEq/L [facility] CO2 22 (L) 24 - 31 mEq/L [facility] Anion gap 12@ANIO 7 - 15 mEq/L [facility] BUN 16 6 - 20 mg/dL [facility] Creatinine 0.80 0.70 - 1.20 mg/dL [facility] Glucose 125 (H) 65 - 99 mg/dL [facility] Calcium 9.8 8.3 - 10.2 mg/dL [facility] Specimen Blood Performing Organization Address [facility] Ph one Number [facility] DEPARTMENT OF [address] [place] [address] [place], [place] [address] PATHOLOGY AND GENOMIC MEDICINE [address] * COVID-19 qualitative PCR (11/30/2019 2:30 PM CDT) Interpretation Negative results do not [place] preclude 2019-nCoV infection [facility] and should not be used as the HOSPITAL sole basis for treatment or other patient management decisions. Negative results must be combined with clinical observations, patient history, and epidemiological information. COVID-19 Not-Detected Not-Detected [facility] See link below for PDF Lab [facility] qualitative PCR ReportComment: Case Number: [facility] [id number] HOSPITAL Specimen Nasopharyngeal swab Performing Organization Address City/State/Zipcode Ph one Number [facility] DEPARTMENT OF [address] [place] [address] PATHOLOGY AND GENOMIC MEDICINE [place] [address] [place] [address] [facility] * Troponin (11/30/2019 1:40 AM CDT) Only the most recent of 5 results within the time period is included. Troponin <0.006 0.000 - 0.040 ng/mL [facility] Comment: YE CORBIN In patients suspected of [facility] having a myocardial infarction, along with all other appropriate clinical measures and actions including ECG and other diagnostics as appropriate, measure Ultra TnI at 0 hrs and at 3 hrs. Myocardial infarction VERY LIKELY The 0 hr TnI level is > 0.10 ng/mL Myocardial infarction LIKELY The 0 hr TnI level is > 0.04 ng/mL and 3 hr level is increased or decreased by at least 0.020 ng/mL Myocardial infarction VERY UNLIKELY Both the 0 hr and 3 hr TnI levels <= 0.04 ng/mL(within normal limits) OR 0 hr is > 0.04 ng/mL and 3 hr is increased OR decreased by less than 0.020 ng/mL Specimen Blood Performing Organization Address City/State/Zipcode Ph one Number [facility] [place] [address] [place] [address] PATHOLOGY AND GENOMIC MEDICINE [facility] [address] [place] [phone] [facility] * Comprehensive metabolic panel (11/30/2019 1:40 AM CDT) Only the most recent of 3 results within the time period is included. Pathologist [facility] Sodium 135 135 - 148 mEq/L [facility] Potassium 4.6 3.5 - 5.0 mEq/L [facility] Chloride 102 98 - 112 mEq/L [facility] CO2 22 (L) 24 - 31 mEq/L [facility] Anion gap 11@ANIO 7 - 15 mEq/L [facility] BUN 16 6 - 20 mg/dL [facility] Creatinine 0.80 0.70 - 1.20 mg/dL [facility] Glucose 184 (H) 65 - 99 mg/dL [facility] Calcium 9.6 8.3 - 10.2 mg/dL [facility] Protein 7.0 6.3 - 8.3 g/dL [facility] Comment: [facility] Corn 4.6-7.0 g/dL 1 week 4.4-7.6 g/dL 7 months-1year 5.1-7.3 g/dL 1-2 years 5.6-7.5 g/dL >3 years 6.0-8.0 g/dL 18-150 6.3-8.3 g/dL Albumin 3.2 (L) 3.5 - 5.0 g/dL [facility] A/G ratio 0.8 0.7 - 3.8 [facility] Alkaline 44 40 - 129 U/L [place] phosphatase [facility] AST 27 10 - 50 U/L [facility] ALT 60 (H) 5 - 50 U/L [facility] Total bilirubin 0.3 0.0 - 1.2 mg/dL [facility] Specimen Blood Performing Organization Address City/State/Zipcode Ph one Number [facility] DEPARTMENT OF [address] [place] [address] [place] [address] PATHOLOGY AND GENOMIC MEDICINE [facility] [id number] [place] [address] [place] [phone] [facility] * IgG subclasses (11/29/2019 6:21 PM CDT) Immunoglobulin 510 240 - 1,118 mg/dL [facility] G subclass 1 Comment: REFERENCE INTERVAL: Immunoglobulin G Subclass 1 Access complete set of age- and/or gender-specific reference intervals for this test in the [facility] Test Directory ([employer]). Immunoglobulin 314 124 - 549 mg/dL [facility] G subclass 2 Comment: REFERENCE INTERVAL: Immunoglobulin G Subclass 2 Access complete set of age- and/or gender-specific reference intervals for this test in the [facility] Test [facility] ([employer]). Immunoglobulin 50 21 - 134 mg/dL [facility] G subclass 3 Comment: REFERENCE INTERVAL: Immunoglobulin G Subclass 3 Access complete set of age- and/or gender-specific reference intervals for this test in the [facility] Test Directory ([employer]). Immunoglobulin 8 1 - 123 mg/dL [facility] G subclass 4 Comment: The total IgG (mg/dL) can be derived by the sum of the subclasses IgG1, IgG2, IgG3 and IgG4 values. However, a confirmatory and more precise total IgG is available by the nephelometric method of total IgG (Test # [id number]). REFERENCE INTERVAL: Immunoglobulin G Subclass 4 Access complete set of age- and/or gender-specific reference intervals for this test in the [facility] Test [facility] ([employer]). Performed By: [employer] [address] [place] [address] Quality Control Assessor: Noel Mason MD, MS Specimen Serum Performing Organization Address [facility] Ph one Number [facility] [address] [place] [address] REF [address] [place] [address] * ABO and Rh (11/29/2019 6:21 PM CDT) ABO grouping A [facility] Rh type POS [facility] Specimen Blood Performing Organization Address City[facility] Ph [place] [address] [address] [place], [place] [address] PATHOLOGY AND GENOMIC MEDICINE [facility] [address] [place] [address] [facility] * Blood culture, aerobic & anaerobic (11/29/2019 6:21 PM CDT) Only the most recent of 2 results within the time period is included. [facility] Blood culture No growth after 5 days of [place] isolate incubation. [facility] Comment: HOSPITAL Specimen Information Specimen Source: Blood Specimen Site: Hand, right Specimen Blood - Hand, right Performing Organization Address City/[facility] Ph one Number [facility] DEPARTMENT OF [address] [place] [address] PATHOLOGY AND GENOMIC MEDICINE [address] * Interleukin 6 (11/29/2019 6:21 PM CDT) [facility] Interleukin 6 9 (H) 0 - 5 pg/mL [facility] Comment: [facility] This test was developed and HOSPITAL its performance characteristics determined by the Department of Pathology and Genomic Medicine, [facility]. Interleukin 6 is tested by [employer] by one-step immunoenzymatic assay. It has not been cleared or approved by FDA. The laboratory is regulated under CLIA as qualified to perform high-complexity testing. This test is used for clinical purposes. It should not be regarded as investigational or for research. Specimen Blood Performing Organization Address City/[facility] Ph one Number [facility] DEPARTMENT OF [address] [place] [phone] PATHOLOGY AND GENOMIC MEDICINE [address] * Fibrinogen (11/29/2019 6:21 PM CDT) [facility] Fibrinogen 766 (H) 200 - 450 mg/dL [facility] Specimen Blood Performing Organization Address [facility] one Number [facility] [place] [place] [address] [address] [place] [phone] 58 PATHOLOGY AND GENOMIC MEDICINE [facility] [address] [address] [place] [phone] [facility] * D-dimer (11/29/2019 6:21 PM CDT) [facility] D-dimer 0.49 (H) 0.00 - 0.40 ug/mL [place] Comment: FEU [place] Units are ug/ml Fibrinogen [facility] Equivalent Unit. When combined with low clinical probability, D-dimer results of less than 0.5 ug/ml FEU have a good negative predictive value in excluding PE or DVT. For D-dimer results greater than 0.5 ug/ml FEU further testing is indicated if PE or DVT is suspected clinically. Elevated D-dimer results have been reported in DVT, PE, and DIC cases and may indicate the presence of a clot. D-dimer results may be elevated due to old age, , inflammatory diseases, trauma, post-operative states, sepsis, and malignancies. Specimen Blood Performing Organization Address City/[facility] one Number [facility] DEPARTMENT OF [address] [place] [address] [place] [address] 58 PATHOLOGY AND GENOMIC MEDICINE [place] [address] * C-reactive protein (11/29/2019 6:21 PM CDT) CRP 4.04 (H) 0.00 - 0.50 mg/dL [facility] Specimen Blood Performing Organization Address [facility], [facility] one Number [facility] DEPARTMENT OF [address] [place] [address] PATHOLOGY AND GENOMIC MEDICINE [address] * Triglycerides (11/29/2019 6:21 PM CDT) Triglycerides 415 (H) <150 mg/dL [facility] Specimen Blood Performing Organization Address [facility] one Number [facility] DEPARTMENT OF [address] [place] [address]. [place] [address] 58 PATHOLOGY AND GENOMIC MEDICINE [place] [address] [address] [address] * LDH (11/29/2019 6:21 PM CDT) LDH 245 (H) 87 - 225 U/L [facility] Specimen Blood Performing Organization Address [facility] one Number [facility] DEPARTMENT OF [facility] [place] [address] PATHOLOGY AND GENOMIC MEDICINE [place] [address] [address] [place] [address] * Ferritin level (11/29/2019 6:21 PM CDT) Ferritin level 2,170 (H) 30 - 400 ng/mL [facility] Specimen Blood Performing Organization Address [facility] one Number [facility] DEPARTMENT OF [address] [place] [address] PATHOLOGY AND GENOMIC MEDICINE [address] * Creatine kinase, total (CPK) (11/29/2019 6:21 PM CDT) Only the most recent of 2 results within the time period is included. Creatine kinase 32 (L) 39 - 308 U/L [facility] Specimen Blood Performing Organization Address [facility] one Number [facility] DEPARTMENT [address] [place] [address] 58 PATHOLOGY AND GENOMIC MEDICINE [address] * CRITICAL CARE (11/29/2019 3:57 PM CDT) Narrative Performed At Adam Vega DO 0 3:53 AM Critical Care Performed by: Adam Vega DO Authorized by: Adam Vega DO Critical care provider statement: Critical care time (minutes): 60 Critical care end time: 12/02/2019 3 :52 AM Critical care time was exclusive of: Separately billable procedures and treating other patients Critical care was necessary to treat or prevent imminent or life-threatening deterioration of the f ollowing conditions: Respiratory failure Critical care was time spent personal ly by me on the following activities: Ordering and performing t reatments and interventions, ordering and review of laboratory studi es, ordering and review of radiographic studies, pulse oximetry, r e-evaluation of patient's condition, development of treatment guilherme n with patient or surrogate, evaluation of patient's response to cristina atment, examination of patient, review of old charts and obtaining hist ory from patient or surrogate [place] 'yes' if you are taking over cri tical care for this patient from another provider.: no * B natriuretic peptide (11/29/2019 3:34 PM CDT) BNP 13 0 - 100 pg/mL [facility] Specimen Blood Performing Organization Address [facility] one Number [address] [place] [address] 58 PATHOLOGY AND GENOMIC MEDICINE [address] * XR Chest 1 Vw Portable (11/29/2019 3:17 PM CDT) Specimen Narrative Performed At EXAMINATION: XR CHEST 1 VW PORTABLE [facility] CLINICAL HISTORY: SOB COMPARISON: 02/18/2019 FINDINGS: One view of the chest demonstrates no rmal cardiomediastinal silhouette. Pulmonary vasculature is within normal limits. Patchy bilateral parahilar groundglass opacity and reticulations are seen, suggestive of bilateral multifocal pneu monia. No pleural effusion is seen.. There is no evidence of pneumothorax. L ow lung volume is noted. Regional osseous structures is unremark able. IMPRESSION: Finding suggestive of bilateral multifo lilibeth pneumonia including Covid 19 infection. Recommend clinical correlati on and appropriate laboratory tests for further evaluation.. [id number] Procedure Note Hm Interface, Radiology Results Incoming - 11/29/2019 3:24 PM CDT EXAMINATION: XR CHEST 1 VW PORTABLE CLINICAL HISTORY: SOB COMPARISON: 02/18/2019 FINDINGS: One view of the chest demonstrates normal cardiomediastinal silhouette. Pulmonary vasculature is within normal limits. Patchy bilateral parahilar groundglass opacity and reticulations are seen, suggestive of bilateral multifocal pneumonia. No pleural effusion is seen.. There is no evidence of pneumothorax. Low lung volume is noted. Regional osseous structures is unremarkable. IMPRESSION: Finding suggestive of bilateral multifocal pneumonia including Covid 19 infection. Recommend clinical correlation and appropriate laboratory tests for further evaluation.. [id number] Performing Organization Address [facility] one Number [facility] [address] [place] [address] * ECG 12 lead (03/03/2019 1:57 PM CDT) Ventricular 70 [facility] rate Atrial rate 70 [facility] MI interval 190 [facility] QRSD interval 156 [facility] QT interval 440 [facility] QTC interval 475 [facility] P axis 1 37 [facility] QRS axis 1 -49 [facility] T wave axis 30 [facility] EKG impression Normal sinus rhythm-Right [facility] MUSE bundle branch block-Left anterior fascicular block-^^^ Bifascicular block ^^^-Abnormal ECG-In automated comparison with ECG of 18-FEB-2019 12:30,-No significant change was found- Specimen Narrative Performed At This result has an attachment that is n ot available. Performing Organization Address [facility]/Zipcode Ph one Number [facility] [place] [address] [place] [address] * XR Cervical Spine 2 Or 3 Vw (03/02/2019 7:30 PM CDT) Only the most recent of 2 results within the time period is included. Specimen Narrative Performed At EXAMINATION: XR CERVICAL SPINE 2 OR 3 VW (AP, lateral and swimmer's views) [facility] CLINICAL INFORMATION: C-spine fusion follow up COMPARISON: None available at the time of study IMPRESSION: *Exam shows straightening of the cervic al lordosis. *No evidence of displaced vertebral fra ctures, dislocations or retropulsed bone fragments. *Status post C3 C7 ACDF procedure and i nterbody fusion shows no evidence of hardware complications *No other significant findings. Procedure Note Interface, Radiology Results Incoming - 03/02/2019 8:35 PM CDT EXAMINATION: XR CERVICAL SPINE 2 OR 3 VW (AP, lateral and swimmer's views) CLINICAL INFORMATION: C-spine fusion follow up COMPARISON: None available at the time of study IMPRESSION: *Exam shows straightening of the cervical lordosis. *No evidence of displaced vertebral fractures, dislocations or retropulsed bone fragments. *Status post C3 C7 ACDF procedure and interbody fusion shows no evidence of hardware complications *No other significant findings. Performing Organization Address City/[facility] Ph one Number [facility] [address] [place] [address] * Arterial line (03/02/2019 3:18 PM CDT) Narrative Performed At Barbara Chicas MD 03/02/2019 3:19 PM Arterial line Performed by: Barbara Chicas MD Authorized by: Barbara Chicas MD Start Time: 03/02/2019 9:56 AM End Time: 03/02/2019 10:00 AM Staff: Anesthesiologist: Barbara Chicas Ra, MD Performed by: Anesthesiologist Pre-procedure: patient identified, IV c hecked, site and side verified, risks and benefits discussed, procedure verified, surgical consent complete, patient position confirmed, m onitors and equipment checked and pre-op evaluation complete MSBT: antiseptic used, hand hygiene per formed, cap/gown used by other personnel and solutions labeled Indications: Indications: hemodynamic monitoring Anesthesia: Anesthesia: General Procedure Details: Arterial Line placement: Placed pos t induction Line placement site: Radial Line placement side: Left Arterial line gauge: 20 G Number of attempts: 1 Ultrasound guidance used: No Post-procedure: Post-procedure: Sterile dressing ap plied Post procedure circulation, sensation , movement: Normal and unchanged Patient tolerance: Patient tolerate d the procedure well with no immediate complications * OR [place] < 1 Hour (03/02/2019 2:10 PM CDT) Specimen Narrative Performed At EXAMINATION: OR [place] 1 HOUR [facility] C-arm fluoroscopy was requested in OR. FLUORO TIME 0:10 IMPRESSION: Separate operative report will be issue d by the physician performing the procedure. [id number] Procedure Note Hm Interface, Radiology Results Incoming - 03/02/2019 6:15 PM CDT EXAMINATION: OR [place] 1 HOUR C-arm fluoroscopy was requested in OR. FLUORO TIME 0:10 IMPRESSION: Separate operative report will be issued by the physician performing the procedure. [id number] Performing Organization Address City/State[facility] Ph one Number [facility] [address] [place] [address] * Airway (03/02/2019 11:29 AM CDT) Narrative Performed At Barbara Chicas MD 03/02/2019 3:18 PM Airway Date/Time: 03/02/2019 9:54 AM Performed by: Florentin Ngo Authorized by: Barbara Chicas MD Location: OR Urgency: Elective Difficult Airway: No Anesthesiologist: Barbara Chicas MD Resident/GERMAN TUTOR/AA: Florentin Ngo Performed by: resident/GERMAN TUTOR/AA Preoxygenated with 100% O2: Yes C-spine Precautions Maintained Througho ut: Yes Mask Ventilation: Assisted mask Final Airway Type: Endotracheal airwa y Final Endotracheal Airway: ETT Cuffed: Yes Technique Used: Direct laryngoscopy Devices/Methods Used in Placement: In tubating stylet Insertion Site: Oral Blade Type: Anayeli Laryngoscope Blade/Videolaryngoscope Bl vaughn Size: 3 ETT Size (mm): 8.0 Cuff at minimum occlusion pressure: Yes Measured from: Lips ETT to Lips (cm): 24 Placement Verified by: CO2 detection an d direct visualization Laryngoscopic view: Grade I - full vi ew of glottis Rapid Sequence Induction (RSI): No Modified RSI: No Number of Attempts at Approach: 1 * Surgical pathology request (03/02/2019 11:29 AM CDT) [facility] DEPARTMENT OF PATHOLOGY AND GENOMIC MEDICINE Surgical See link below for PDF Lab [facility] pathology Report DEPARTMENT OF report PATHOLOGY AND GENOMIC MEDICINE Result status This is Final Report for [facility] [id number] DEPARTMENT OF PATHOLOGY AND GENOMIC MEDICINE Specimen Performing Organization Address City/[facility] one Number [facility] DEPARTMENT OF [address] [place] [address] [place], [place] [address] PATHOLOGY AND GENOMIC MEDICINE * Type and screen (02/28/2019 10:05 AM CDT) ABO grouping A [facility] Rh type POS [facility] Antibody screen NEG [facility] Specimen Blood Performing Organization Address [facility] one Number [facility] DEPARTMENT OF [address] [place] [address] [place], [place] [address] PATHOLOGY AND GENOMIC MEDICINE [address] [place] [address] [facility] * XR Chest 2 Vw (02/18/2019 1:18 PM CDT) Specimen Narrative Performed At EXAMINATION: XR CHEST 2 VW [facility] CLINICAL HISTORY: Z01.818 Encounter f or other preprocedural examination, pre op testing COMPARISON: None IMPRESSION: Lungs are clear without infiltrate, ple ural effusion or pneumothorax. Cardiomediastinal silhouette is mildly enlarged. Osseous degenerative changes. [id number] Procedure Note Hm Interface, Radiology Results Incoming - 02/18/2019 1:33 PM CDT EXAMINATION: XR CHEST 2 VW CLINICAL HISTORY: Z01.818 Encounter for other preprocedural examination, pre op testing COMPARISON: None IMPRESSION: Lungs are clear without infiltrate, pleural effusion or pneumothorax. Cardiomediastinal silhouette is mildly enlarged. Osseous degenerative changes. [id number] Performing Organization Address [facility] one Number [facility] [address] [place] [address] * ECG Pre/Post Op (02/18/2019 12:30 PM CDT) Ventricular 57 [facility] MUSE rate Atrial rate 57 [facility] M[facility] MI interval 200 [facility] QRSD interval 154 [facility] QT interval 450 [facility] QTC interval 438 [facility] M[facility] P axis 1 48 [facility] MUSE QRS axis 1 -52 [facility] MUSE T wave axis 20 [facility] MUSE EKG impression Sinus bradycardia-Right bundle [facility] MU SE branch block-Left anterior fascicular block-^^^ Bifascicular block ^^^-Abnormal ECG-No previous ECGs available- Specimen Narrative Performed At This result has an attachment that is n ot available. Performing Organization Address [facility] one Number [facility] MUSE [address] [place] [address] * Partial thromboplastin time, activated (02/18/2019 12:30 PM CDT) PTT 29.5 23.0 - 36.0 sec [place] Comment: [facility] PTT therapeutic range for [facility] unfractionated heparin is 61.0-112.0 seconds which corresponds to Anti-Xa 0.3-0.7 U/ml. Specimen Blood Performing Organization Address [facility] one Number [facility] DEPARTMENT OF [address] [place] [address] [place] [address] PATHOLOGY AND [facility] MEDICINE [address] * Prothrombin time with INR (02/18/2019 12:30 PM CDT) Pathologist [facility] Prothrombin 12.8 11.5 - 14.5 sec [facility] INR 1.0 [place] Comment: [facility] The International Normalized [facility] Ratio (INR) is a therapeutic monitoring tool for patients who are stable on oral anticoagulant therapy. An INR of 2.0-3.0 is suggested for deep vein thrombosis/pulmonary embolism. Specimen Blood Performing Organization Address [facility] Ph one Number [facility] DEPARTMENT OF [address] [place] [address] [place] [address] PATHOLOGY AND [facility] MEDICINE [address] * CBC hemogram (02/18/2019 12:30 PM CDT) WBC 7.74 4.50 - 11.00 k/uL [facility] RBC 4.48 4.40 - 6.00 m/uL [facility] HGB 13.7 (L) 14.0 - 18.0 g/dL [facility] HCT 43.6 41.0 - 51.0 % [facility] MCV 97.3 82.0 - 100.0 fL [facility] MCH 30.6 27.0 - 34.0 pg [facility] MCHC 31.4 31.0 - 37.0 g/dL [facility] RDW - SD 48.4 37.0 - 55.0 fL [facility] MPV 11.8 8.8 - 13.2 fL [facility] Platelet count 282 150 - 400 k/uL [facility] Nucleated RBC 0.00 /100 WBC [facility] Specimen Blood Performing Organization Address City/State/[facility] [place] [address] [address] [place], [place] [address] PATHOLOGY AND GENOMIC MEDICINE [facility] [address] [place] [address] [facility] after 12/25/2018 Additional Health Concerns Resolved Time Infection Noted Time Coronavirus COVID-19 (Confirmed) 11/30/2019 12:56 PM CDT Advance Directives For more information, please contact: [phone] Patient Enterprise Integration Architect Explanation Type Date Recorded Advance Directives, 11/29/2019 4:18 PM Living Will and Medical Power of Window/Distribution Clerk
--- NOTE | 2019-12-26 19:37 | NUR ---
RETURNED FROM CT TO RM 3.
--- NOTE | 2019-12-26 19:54 | Emergency Department Note ---
History of Present Illnes History of Present Illness Chief Complaint: rgt Chest Pain History of Present Illness This is a 54 year old male. d/c from hosp 1 month ago dx covid. + persidtent cough and mild sob. then 1 week ago rgt cp Historian: Patient Arrival Mode: Car History limited by: condition of the patient Rn Pain Management Required: No Onset (how long ago): week(s) (1) Location: rgt cw Quality: sharp Radiation: Reports back Severity: moderate Onset quality: gradual Duration (how long): week(s) (1) Timing of current episode: constant Progression: worsening Chronicity: new Context: Reports recent illness; Denies recent surgery, Denies recent travel, Denies trauma/injury, Denies new medications Relieving factors: none Exacerbating factors: movement Associated symptoms: Reports cough, Reports shortness of breath Treatments prior to arrival: none Past Medical/Family History Physician Review I have reviewed the patient's past medical and family history. Any updates have been documented here. Past Medical History Recent Fever: No Clinical Suspicion of Infectio: No New/Unexplained Change in Ment: No Past Medical History: CAD, Hyperlipedemia Other Medical History: SLEEP APNEA-USES CPAP CHRON'S DISEASE COVID + OCTOBER 2019 Past Surgical History: Hernia Repair Other Surgery: CERVICAL FUSION X2 ORAL SINUS Social History Smoking Cessation: Never Smoker Alcohol Use: Occasional Any Illegal Drug Use: No Other Any Pre-Existing Lines (PICC,: No Review of Systems Review of Systems Constitutional: Reports no symptoms EENTM: Reports no symptoms Cardiovascular: Reports as per HPI, Reports chest pain Respiratory: Reports as per HPI, Reports cough, Reports dyspnea Gastrointestinal: Reports no symptoms Genitourinary: Reports no symptoms Musculoskeletal: Reports no symptoms Integumentary: Reports no symptoms Neurological: Reports no symptoms Psychological: Reports no symptoms Endocrine: Reports no symptoms Hematological/Lymphatic: Reports no symptoms Review of other systems: All other systems negative Physical Exam Related Data Allergies: Coded Allergies: No Known Allergies (Unverified , 10/15/13) Triage Vital Signs Vital Signs Date Time Temp Pulse Resp B/P (MAP) Pulse Ox O2 Delivery O2 Flow Rate FiO2 12/26/19 17:47 98.0 98 16 122/72 96 Room Air Vital signs reviewed: Yes Physical Exam CONSTITUTIONAL Constitutional: Present well-developed, Present well-nourished HENT HENT: Present normocephalic, Present atraumatic, Present oropharynx clear/moist, Present nose normal HENT L/R: Present left ext ear normal, Present right ext ear normal EYES Eyes: Reports PERRL, Reports conjunctivae normal NECK Neck: Present ROM normal, Present supple PULMONARY Pulmonary: Present effort normal, Present breath sounds normal, Present other (rgt cw tenderness) CARDIOVASCULAR Cardiovascular: Present regular rhythm, Present heart sounds normal, Present capillary refill normal, Present normal rate GASTROINTESTINAL Abdominal: Present soft, Present nontender, Present bowel sounds normal GENITOURINARY Genitourinary: Present exam deferred SKIN Skin: Present warm, Present dry MUSCULOSKELETAL Musculoskeletal: Present ROM normal NEUROLOGICAL Neurological: Present alert, Present oriented x 3, Present no gross motor or sensory deficits PSYCHOLOGICAL Psychological: Present mood/affect normal, Present judgement normal Results Laboratory Result Diagram: 12/26/19 1748 12/26/19 1748 Laboratory Laboratory Tests Test 12/26/19 17:48 White Blood Count 7.48 x10e3/uL (4.8-10.8) Red Blood Count 4.70 x10e6/uL (4.3-5.7) Hemoglobin 13.9 g/dL (14.0-18.0) Hematocrit 44.0 % (38.2-49.6) Mean Corpuscular Volume 93.6 fL (81-99) Mean Corpuscular Hemoglobin 29.6 pg (28-32) Mean Corpuscular Hemoglobin Concent 31.6 g/dL (31-35) Red Cell Distribution Width 14.2 % (11.7-14.4) Platelet Count 292 x10e3/uL (140-360) Neutrophils (%) (Auto) 45.5 % (38.7-80.0) Lymphocytes (%) (Auto) 39.0 % (18.0-39.1) Monocytes (%) (Auto) 10.2 % (4.4-11.3) Eosinophils (%) (Auto) 3.5 % (0.0-6.0) Basophils (%) (Auto) 1.1 % (0.0-1.0) Neutrophils # (Auto) 3.4 (2.1-6.9) Lymphocytes # (Auto) 2.9 (1.0-3.2) Monocytes # (Auto) 0.8 (0.2-0.8) Eosinophils # (Auto) 0.3 (0.0-0.4) Basophils # (Auto) 0.1 (0.0-0.1) Absolute Immature Granulocyte (auto 0.05 x10e3/uL (0-0.1) Sodium Level 141 mmol/L (136-145) Potassium Level 3.8 mmol/L (3.5-5.1) Chloride Level 106 mmol/L (98-107) Carbon Dioxide Level 27 mmol/L (22-29) Anion Gap 11.8 mmol/L (8-16) Blood Urea Nitrogen 16 mg/dL (7-26) Creatinine 1.27 mg/dL (0.72-1.25) Estimat Glomerular Filtration Rate 59 ML/MIN (60-) BUN/Creatinine Ratio 13 (6-25) Glucose Level 140 mg/dL (74-118) Calcium Level 10.9 mg/dL (8.4-10.2) Magnesium Level 2.0 MG/DL (1.3-2.1) Total Bilirubin 0.4 mg/dL (0.2-1.2) Aspartate Amino Transf (AST/SGOT) 20 IU/L (5-34) Alanine Aminotransferase (ALT/SGPT) 36 IU/L (0-55) Alkaline Phosphatase 56 IU/L (40-150) Creatine Kinase 42 IU/L (30-200) Creatine Kinase MB 0.90 ng/mL (0-5.0) Troponin I 0.026 ng/mL (0-0.300) B-Type Natriuretic Peptide < 10.0 pg/mL (0-100) Total Protein 7.1 g/dL (6.5-8.1) Albumin 3.9 g/dL (3.5-5.0) Globulin 3.2 g/dL (2.3-3.5) Albumin/Globulin Ratio 1.2 (0.8-2.0) Lab results reviewed: Yes Diagnostics Tests Diagnostic test(s) reviewed: Yes (ekg nsr, hr 95 , rbbb, lafb, ) Assessment & Plan Reassessment Reassessment time: 22:30 Reassessment pt doing well and pain= 1 s/p meds Assessment & Plan Final Impression: (1) Chest wall muscle strain Depart Disposition: HOME, SELF-CARE Last Vital Signs Date Time Temp Pulse Resp B/P (MAP) Pulse Ox O2 Delivery O2 Flow Rate FiO2 12/26/19 17:47 98.0 98 16 122/72 96 Room Air Home Meds Active Scripts Cyclobenzaprine Hcl (FLEXERIL) 5 Mg Tablet, 10 MG PO Q8H PRN for MUSCLE SPASMS, #30 TAB take after naprosyn to control pain if need be Prov:ISIDRA JACK 12/26/19 Naproxen (NAPROSYN) 500 Mg Tablet, 500 MG PO Q12H PRN for MODERATE PAIN (4-6), # 30 TAB Prov:ISIDRA JACK 12/26/19 Reported Medications [Aleve] No Conflict Check, 500 MG PRN 03/07/17 Gabapentin (GRALISE) 600 Mg Tab.er.24h, TID 03/07/17 Omeprazole (OMEPRAZOLE) 40 Mg Capsule.dr, DAILY 03/07/17 Lactobac Cmb #3/Fos/Pantethine (PROBIOTIC & ACIDOPHILUS CAP) 1 Each Capsule, DAILY 03/07/17 Mesalamine (PENTASA) 250 Mg Capsule.er, 250 MG PO 2BID 09/18/14 Adalimumab (HUMIRA) 40 Mg/0.8 Ml Pen.ij.kit, 40 MG INJ Q2WKS 09/18/14 Benazepril Hcl (BENAZEPRIL HCL) 20 Mg Tablet, 10 MG PO DAILY 08/13/12 Fenofibric Acid (Choline) (TRILIPIX) 45 Mg Capsule.dr, 45 MG PO DAILY 08/13/12 Medications in the ED Sodium Chloride 1,000 ml @ 1,000 mls/hr Q1H STAT IV Last administered on 12/26/19at 18:35; Admin Dose 1,000 MLS/HR; Start 12/26/19 at 18:08; Stop 12/26/19 at 19:07; Status DC Ketorolac Tromethamine 30 mg ONCE ONCE IV Last administered on 12/26/19at 18:35; Admin Dose 30 MG; Start 12/26/19 at 18:08; Stop 12/26/19 at 18:23; Status DC Ketorolac Tromethamine 30 mg STK-MED ONCE .ROUTE ; Start 12/26/19 at 18:33; Stop 12/26/19 at 18:27; Status DC Sodium Chloride 50 ml @ ud STK-MED ONCE .ROUTE ; Start 12/26/19 at 18:48; Stop 12/26/19 at 18:44; Status DC Iopamidol 74,000 mg STK-MED ONCE INJ ; Start 12/26/19 at 18:48; Stop 12/26/19 at 18:44; Status DC ISIDRA JACK Dec 26, 2019 19:54
--- NOTE | 2019-12-26 20:01 | Diagnostic Imaging Report ---
EXAMINATION: CT scan of the chest with contrast. TECHNIQUE: Helical CT images of the chest were performed from the lung apices to the level of the adrenal glands after the intravenous administration of 100 cc of Omnipaque 300. Coronal and sagittal reformatted images were obtained. Dose modulation, iterative reconstruction, and/or weight based adjustment of the mA/kV was utilized to reduce the radiation dose to as low as reasonably achievable. COMPARISON: None. CLINICAL HISTORY:Chest pain DISCUSSION: LINES/TUBES: None. LUNGS AND AIRWAYS: The lungs are clear. No pulmonary nodules, masses or consolidation. The airways are normal, without endobronchial lesions. PLEURA: No pneumothorax or pleural effusions. HEART AND MEDIASTINUM: The thyroid gland is normal. The heart and pericardium are within normal limits. LYMPH NODES: There is no mediastinal, hilar or axillary lymphadenopathy. ABDOMEN: Hepatic steatosis. BONES AND SOFT TISSUES: No acute bony abnormalities. IMPRESSION: No pulmonary embolism. Signed by: Dr. Ramos Jarquin M.D. on 12/26/2019 7:57 PM
--- NOTE | 2019-12-26 20:39 | NUR ---
ALL TEST RESULTS COMPLETE. AWAITING MD DISPO
[2019-12-26] MEDS ORDERED: ORPHENADRINE CITRATE 30 MG/ML VIAL IM ONE (20:45)
[2019-12-26] MEDS ORDERED: LORAZEPAM INJ 2 MG/ML VIAL IV ONE ×2 (20:54→22:15)
[2019-12-26] MEDS ORDERED: ASPIRIN 81 MG CHEW TAB PO ONE (21:45)
[2019-12-26] MEDS ORDERED: NITROGLYCERIN 2% OINT 1 GM PKT TOP ONE (21:45)
[2019-12-26] MEDS ORDERED: LORAZEPAM INJ 2 MG/ML VIAL ONE (22:24)
[2019-12-26] MEDS ORDERED: NAPROSYN500 MG PO (22:53)
[2019-12-26] MEDS ORDERED: CYCLOBENZAPRINE5 MG PO (22:53)
[2019-12-26 22:58] VITALS: BP 133/76
== END 2019-12-26 22:58 | disposition home or self-care (01) ==
LOC: FSED 17:57
DX: R07.89 Other chest pain (principal); S29.011A Strain of muscle and tendon of front wall of thorax, initial encounter; R05 Cough; R06.02 Shortness of breath; I25.10 Atherosclerotic heart disease of native coronary artery without angina pectoris; E78.5 Hyperlipidemia, unspecified; G47.30 Sleep apnea, unspecified
CPT/HCPCS: 36415; 71045; 71260; 80053; 82550; 82553; 83735; 83880; 84484; 85025; 93005; 96374; 96375; 99284; J1885; J2060; J2360; J7030; Q9967

== ENCOUNTER → 2020-02-23 | Day surgery (SDC) | payer BC, OTHER ==
[2020-02-20 10:10] LABS: BASOPHILS # (AUTO) 0.1 (0.0-0.1); EOSINOPHILS # (AUTO) 0.2 (0.0-0.4); EOSINOPHILS % 2.7 % (0.0-6.0); HEMATOCRIT 41.4 % (38.2-49.6); HEMOGLOBIN 13.1 g/dL (14.0-18.0); LYMPHOCYTES % 32.4 % (18.0-39.1); MEAN CORPUSCULAR HEMOGLOBIN 29.8 pg (28-32); MEAN CORPUSCULAR HGB CONC 31.6 g/dL (31-35); MEAN CORPUSCULAR VOLUME 94.1 fL (81-99); MONOCYTES # (AUTO) 0.7 (0.2-0.8); MONOCYTES % 11.3 % (4.4-11.3); NEUTROPHILS # (AUTO) 3.1 (2.1-6.9); NEUTROPHILS % 51.9 % (38.7-80.0); PLATELET COUNT 211 x10e3/uL (140-360); RED CELL DISTRIBUTION WIDTH 13.9 % (11.7-14.4)
[~2020-02-23] MED LIST changes: +CYCLOBENZAPRINE5 MG PO; +FENTANYL CITRATE/PF 100MCG/2 ML INJ ONE; +HYOSCYAMINE 0.125 MG TAB ONE; +MIDAZOLAM HCL 5 MG/ML VIAL ONE; +MONTELUKAST SOD10 MG PO; +NAPROSYN500 MG PO; -OMEPRAZOLE40 MG; +PLAVIX75 MG PO; +PROPOFOL IV EMULSION 10 MG/ML 20 ML VIAL ONE; +SYMBICORT 16010.2 GM INH; +ULTRAM50 MG PO; +VASCEPA1 GM PO
[2020-02-23 16:00] VITALS: BP 119/85
== END | disposition home or self-care (01) ==
LOC: OR 11:51
PROVIDERS: ATTEND Internal Medicine Gastroenterology
DX: K29.70 Gastritis, unspecified, without bleeding (principal); D12.2 Benign neoplasm of ascending colon; K50.90 Crohn's disease, unspecified, without complications; K44.9 Diaphragmatic hernia without obstruction or gangrene; K59.00 Constipation, unspecified; K64.8 Other hemorrhoids; Z01.812 Encounter for preprocedural laboratory examination; Z11.59 Encounter for screening for other viral diseases; Z79.02 Long term (current) use of antithrombotics/antiplatelets; Z68.39 Body mass index [BMI] 39.0-39.9, adult; Z80.0 Family history of malignant neoplasm of digestive organs
CPT/HCPCS: 36415; 43239; 45380; 85025; J2250; J2704; J3010; U0002; 43450; 45378

== ENCOUNTER → 2020-04-23 | Day surgery (SDC) | payer BC ==
[2020-04-18 10:29] LABS: BASOPHILS # (AUTO) 0.1 (0.0-0.1); EOSINOPHILS # (AUTO) 0.2 (0.0-0.4); EOSINOPHILS % 2.7 % (0.0-6.0); HEMOGLOBIN 13.2 g/dL (14.0-18.0); LYMPHOCYTES # (AUTO) 2.4 (1.0-3.2); LYMPHOCYTES % 36.5 % (18.0-39.1); MEAN CORPUSCULAR HEMOGLOBIN 30.7 pg (28-32); MEAN CORPUSCULAR HGB CONC 32.2 g/dL (31-35); MEAN CORPUSCULAR VOLUME 95.3 fL (81-99); MONOCYTES # (AUTO) 0.7 (0.2-0.8); MONOCYTES % 10.5 % (4.4-11.3); NEUTROPHILS # (AUTO) 3.2 (2.1-6.9); NEUTROPHILS % 48.4 % (38.7-80.0); PLATELET COUNT 278 x10e3/uL (140-360); RED CELL DISTRIBUTION WIDTH 13.3 % (11.7-14.4)
[~2020-04-23] MED LIST changes: -FENTANYL CITRATE/PF 100MCG/2 ML INJ ONE; +LIDOCAINE HCL 2% LOCAL INJ 5 ML SDV VIAL INJ ONE
[2020-04-23 11:15] VITALS: BP 122/72
== END | disposition home or self-care (01) ==
LOC: OR 06:27
PROVIDERS: ATTEND Internal Medicine Gastroenterology
DX: K50.90 Crohn's disease, unspecified, without complications (principal); D12.3 Benign neoplasm of transverse colon; D12.4 Benign neoplasm of descending colon; K57.30 Diverticulosis of large intestine without perforation or abscess without bleeding; K64.8 Other hemorrhoids; K21.9 Gastro-esophageal reflux disease without esophagitis; G47.33 Obstructive sleep apnea (adult) (pediatric); I25.10 Atherosclerotic heart disease of native coronary artery without angina pectoris; I45.2 Bifascicular block; I10 Essential (primary) hypertension; Z01.810 Encounter for preprocedural cardiovascular examination; Z01.812 Encounter for preprocedural laboratory examination; Z20.828 Contact with and (suspected) exposure to other viral communicable diseases; Z79.02 Long term (current) use of antithrombotics/antiplatelets; Z86.19 Personal history of other infectious and parasitic diseases; Z87.891 Personal history of nicotine dependence
CPT/HCPCS: 36415; 45384; 45385; 85025; 93005; J2001; J2250; J2704; U0002; 45378

== ENCOUNTER → 2020-05-01 | Outpatient (CLI) | payer BC ==
[~2020-05-01] MED LIST changes: -HYOSCYAMINE 0.125 MG TAB ONE; -LIDOCAINE HCL 2% LOCAL INJ 5 ML SDV VIAL INJ ONE; -MIDAZOLAM HCL 5 MG/ML VIAL ONE; -PROPOFOL IV EMULSION 10 MG/ML 20 ML VIAL ONE
== END ==
LOC: DX 09:25
PROVIDERS: ATTEND Internal Medicine Gastroenterology
DX: K50.90 Crohn's disease, unspecified, without complications (principal); K20.90 Esophagitis, unspecified without bleeding; Z20.828 Contact with and (suspected) exposure to other viral communicable diseases
CPT/HCPCS: 74250; U0002

== ENCOUNTER → 2021-07-03 | Outpatient (CLI) | payer BC ==
[~2021-07-03] MED LIST changes: +IOPAMIDOL 370 MG/ML 200 ML INFUS..BTL INJ ONE; +SODIUM CHLORIDE 0.9% 50ML 50 ML ONE
[2021-07-03 09:56] LABS: CREATININE, SERUM 0.86 mg/dL (0.72-1.25)
== END ==
LOC: CT 08:59
PROVIDERS: ATTEND Internal Medicine Gastroenterology
DX: R10.31 Right lower quadrant pain (principal)
CPT/HCPCS: 36415; 74177; 82565; 84520; Q9967

== ENCOUNTER → 2021-07-19 | Outpatient (CLI) | payer BC ==
[~2021-07-19] MED LIST changes: -IOPAMIDOL 370 MG/ML 200 ML INFUS..BTL INJ ONE; -SODIUM CHLORIDE 0.9% 50ML 50 ML ONE
== END ==
LOC: DX 08:04
PROVIDERS: ATTEND Internal Medicine Gastroenterology
DX: R10.31 Right lower quadrant pain (principal); K50.90 Crohn's disease, unspecified, without complications; Z20.822 Contact with and (suspected) exposure to COVID-19
CPT/HCPCS: 74250; U0002

== ENCOUNTER → 2021-08-05 | Day surgery (SDC) | payer BC ==
[~2021-08-05] MED LIST changes: +GLUCAGON FOR INJ 1 MG VIAL ONE; +HYOSCYAMINE SULFATE 0.5 MG/ML INJ ONE; +KETAMINE HCL INJ 50 MG/ML 10 ML VIAL ONE; +LIDOCAINE HCL 2% LOCAL INJ 5 ML SDV VIAL INJ ONE; +MIDAZOLAM HCL 2 MG/2 ML VIAL ONE; +PROPOFOL IV EMULSION 10 MG/ML 20 ML VIAL ONE; +VITAMIN D3 PO
[2021-08-05 10:38] VITALS: BP 129/85
== END | disposition home or self-care (01) ==
LOC: OR 06:21
PROVIDERS: ATTEND Internal Medicine Gastroenterology
DX: K50.90 Crohn's disease, unspecified, without complications (principal); K63.5 Polyp of colon; K57.30 Diverticulosis of large intestine without perforation or abscess without bleeding; K62.89 Other specified diseases of anus and rectum; K64.8 Other hemorrhoids; K29.70 Gastritis, unspecified, without bleeding; Z71.3 Dietary counseling and surveillance; G47.33 Obstructive sleep apnea (adult) (pediatric); I45.10 Unspecified right bundle-branch block; I44.4 Left anterior fascicular block; I25.10 Atherosclerotic heart disease of native coronary artery without angina pectoris; I10 Essential (primary) hypertension; Z01.810 Encounter for preprocedural cardiovascular examination; Z01.812 Encounter for preprocedural laboratory examination; Z20.822 Contact with and (suspected) exposure to COVID-19; Z79.899 Other long term (current) drug therapy; Z68.34 Body mass index [BMI] 34.0-34.9, adult; Z85.46 Personal history of malignant neoplasm of prostate; Z80.0 Family history of malignant neoplasm of digestive organs
CPT/HCPCS: 36415; 45380; 83993; 86141; 93005; J1610; J1980; J2001; J2250; J2704; U0002; 45378

== ENCOUNTER → 2024-10-21 | Day surgery (SDC) | payer BC ==
[~2024-10-21] MED LIST changes: +ASPIRIN81 MG PO; +DICYCLOMINE HCL20 MG PO; +FENOFIBRATE134 MG; +FISH OIL 1,0001 EAC7; -HYOSCYAMINE SULFATE 0.5 MG/ML INJ ONE; -KETAMINE HCL INJ 50 MG/ML 10 ML VIAL ONE; -MIDAZOLAM HCL 2 MG/2 ML VIAL ONE; +STELARA45 MG/0.1
[2024-10-21] MEDS: LACTATED RINGER'S 1,000 ML ONE (08:54)
[2024-10-21 11:22] VITALS: TEMP 97.6
[2024-10-21 11:45] VITALS: BP 130/92; PULSE 71; RESP 18; O2SAT 98
== END | disposition home or self-care (01) ==
LOC: OR 07:55
PROVIDERS: ATTEND Internal Medicine Gastroenterology
DX: K51.90 Ulcerative colitis, unspecified, without complications (principal); D12.2 Benign neoplasm of ascending colon; K57.30 Diverticulosis of large intestine without perforation or abscess without bleeding; K64.8 Other hemorrhoids; Z87.19 Personal history of other diseases of the digestive system; G47.33 Obstructive sleep apnea (adult) (pediatric); I10 Essential (primary) hypertension; Z71.89 Other specified counseling; I44.0 Atrioventricular block, first degree; I45.10 Unspecified right bundle-branch block; I44.4 Left anterior fascicular block; E78.5 Hyperlipidemia, unspecified; E66.01 Morbid (severe) obesity due to excess calories; Z88.6 Allergy status to analgesic agent; Z01.810 Encounter for preprocedural cardiovascular examination; Z79.82 Long term (current) use of aspirin; Z79.899 Other long term (current) drug therapy; Z68.33 Body mass index [BMI] 33.0-33.9, adult; Z71.3 Dietary counseling and surveillance; Z85.46 Personal history of malignant neoplasm of prostate; Z80.0 Family history of malignant neoplasm of digestive organs
CPT/HCPCS: 45385; 93005; J1610; J2003; J2704; J7121; 45378